=== PATIENT | female | born 1960 | race Caucasian/White ===

== ENCOUNTER 2016-07-30 19:09 | Inpatient (IN) | payer MEDICARE ==
[~2016-07-30] VITALS: Ht 162.6 cm; Wt 67.0 kg
[~2016-07-30 19:09] MED LIST: ASPIRIN81 MG PO; BETAPACE 80 MG80 MG PO; COREG 3.1253.125 MG PO; COUMADIN3 MG PO; FUROSEMIDE20 MG PO; LANOXIN250 MCG PO; LEVAQUIN500 MG PO; PACERONE400 MG PO; PRINIVIL10 MG PO; XARELTO20 MG PO
[2016-07-30 20:42] LABS: BASOPHILS 0.3 % (0.0-2.0); HEMATOCRIT 42.3 % (36.0-48.0); HEMOGLOBIN 14.2 g/dL (12-16); IMMATURE GRANULOCYTES 0.2 % (0-5); LYMPHOCYTES 20.1 % (15-50); MCHC 33.6 g/dL (31.0-37.0); MCV 86.5 fL (80.0-100.0); MEAN PLATELET VOLUME 9.5 fL (7.4-10.4); MONOCYTES 13.8 % (2-11); NEUTROPHILS 60.6 % (40-80); RBC 4.89 10x6/uL (4.00-5.40); RDW 16.2 % (11.5-14.5); WBC 10.8 10x3/uL (4.8-10.8)
[2016-07-30 20:52] LABS: PLATELET COUNT 328 10x3/uL (130-400)
[2016-07-30 20:58] LABS: ALKALINE PHOSPHATASE 132 U/L (46-116); ALT (SGPT) 23 U/L (10-68); BILIRUBIN - TOTAL 0.47 mg/dL (0.2-1.3); CALC OSMOLALITY 260 mosm/kg (275-300); CARBON DIOXIDE 31.4 mmol/L (21.0-32.0); CHLORIDE - SERUM 93 mmol/L (98-107); CREATININE - SERUM 0.8 mg/dL (0.6-1.3); GLUCOSE 99 mg/dL (74-106); POTASSIUM - SERUM 4.1 mmol/L (3.5-5.1); PROTEIN - SERUM 7.8 g/dL (6.4-8.2); SODIUM 130 mmol/L (136-145); UREA NITROGEN 12 mg/dL (7-18); eGFR NON AFRICAN AMERICAN 78 mL/min (90-120)
[2016-07-30 21:14] LABS: PRO BNP 926 pg/mL (0-125)
[2016-07-30 21:15] LABS: TROPONIN-I 0.134 ng/mL (0.000-0.060)
--- NOTE | 2016-07-31 00:25 | NUR ---
PT ARRIVES TO FLOOR FROM THE ER ACCOMPANIED BY ER NURSE VIA WC TO ROOM 2115. PT PLACED ON TELEMETRY, PACED ON TELE 74. O2 2LPM NC PLACED ON PT ON ARRIVAL. PT STATES WEARING O2 AT NIGHT AT HOME. MEDICATIONS RECONCILED AT THE BEDSIDE. ADMISSION ASSESSMENT AND HISTORY COMPLETED. UNIT ROUTINES AND PROTOCOLS DISCUSSED WITH PT, PT VERBALIZED UNDERSTANDING. WILL CONT TO MONITOR.
[2016-07-31] MEDS ORDERED: PACERONE400 MG PO (00:36)
[2016-07-31] MEDS ORDERED: PROAIR HFA8.5 GM INH (00:37)
[2016-07-31 00:38] VITALS: BP 109/74; BMI 23.5
[2016-07-31 06:29] VITALS: BP 93/57
--- NOTE | 2016-07-31 07:30 | NUR ---
RECEIVED PT IN BED AAOX4 RESP UNLABORED NAD NOTED
[2016-07-31 08:32] VITALS: BP 110/73
[2016-07-31 12:12] VITALS: Ht 162.6 cm; Wt 67.0 kg
[2016-07-31 12:43] VITALS: BP 87/60
[2016-07-31 16:18] VITALS: BP 92/64
--- NOTE | 2016-07-31 19:15 | NUR ---
INITIAL ROUNDS MADE. PT SITTING UP IN BED WATCHING TV. PT DENIES NEEDS OR C/O AT THIS TIME. CALL LIGHT IN REACH. WILL CONT TO MONITOR.
[2016-07-31 20:15] VITALS: BP 118/77
[2016-08-01 00:34] VITALS: BP 109/78
--- NOTE | 2016-08-01 00:55 | NUR ---
SUPERINTENDENT SCHOOLS AT BEDSIDE FOR VS, NEEDS ADDRESSED. CALL LIGHT IN REACH. WILL CONT TO MONITOR.
[2016-08-01 04:26] VITALS: BP 101/71
[2016-08-01 05:17] LABS: BASOPHILS 0.2 % (0.0-2.0); HEMOGLOBIN 12.3 g/dL (12-16); IMMATURE GRANULOCYTES 0.3 % (0-5); LYMPHOCYTES 19.1 % (15-50); MCH 28.4 pg (26.0-34.0); MCHC 32.4 g/dL (31.0-37.0); MCV 87.8 fL (80.0-100.0); MEAN PLATELET VOLUME 9.4 fL (7.4-10.4); MONOCYTES 9.3 % (2-11); NEUTROPHILS 70.1 % (40-80); PLATELET COUNT 343 10x3/uL (130-400); RBC 4.33 10x6/uL (4.00-5.40); RDW 16.6 % (11.5-14.5); WBC 11.1 10x3/uL (4.8-10.8)
[2016-08-01 05:30] LABS: CALCIUM 8.3 mg/dL (8.5-10.1); CARBON DIOXIDE 29.6 mmol/L (21.0-32.0); CHLORIDE - SERUM 98 mmol/L (98-107); CREATININE - SERUM 0.8 mg/dL (0.6-1.3); GLUCOSE 97 mg/dL (74-106); SODIUM 134 mmol/L (136-145); eGFR NON AFRICAN AMERICAN 78 mL/min (90-120)
[2016-08-01 05:38] LABS: CALC OSMOLALITY 269 mosm/kg (275-300); POTASSIUM - SERUM 3.4 mmol/L (3.5-5.1); UREA NITROGEN 18 mg/dL (7-18)
--- NOTE | 2016-08-01 06:43 | NUR ---
RESTING WELL WITH EYES CLOSED, CONT TO MONITOR.
--- NOTE | 2016-08-01 07:30 | NUR ---
RECEIVED PT IN BED AAOX4 RESP UNLABORED SKIN W/D DENIES ANY NEEDS OR DISCOMFORT AT THIS TIME
[2016-08-01 08:33] VITALS: BP 92/62
[2016-08-01 12:26] VITALS: BP 91/65
[2016-08-01 15:46] VITALS: BP 91/50
--- NOTE | 2016-08-01 19:15 | NUR ---
INITIAL ROUNDS MADE. PT SITTING UP IN BED. RT IN ROOM FOR SCHEDULED TREATMENTS. PT DENIES NEEDS OR C/O AT THIS TIME. WILL CONT TO MONITOR.
--- NOTE | 2016-08-01 22:35 | NUR ---
WATCHING TV. NO NEEDS AT THIS TIME. CONT TO MONITOR.
--- NOTE | 2016-08-02 03:25 | NUR ---
SHEET MILL SUPERVISOR AT BEDSIDE FOR VS. NEEDS ADDRESSED. CALL LIGHT IN REACH. WILL CONT TO MONITOR.
[2016-08-02 03:49] VITALS: BP 105/59
[2016-08-02 05:37] LABS: BASOPHILS 0.1 % (0.0-2.0); EOSINOPHILS 0 % (0-7); HEMATOCRIT 40.6 % (36.0-48.0); HEMOGLOBIN 13.2 g/dL (12-16); IMMATURE GRANULOCYTES 0.1 % (0-5); LYMPHOCYTES 9.4 % (15-50); MCH 28.5 pg (26.0-34.0); MCHC 32.5 g/dL (31.0-37.0); MCV 87.7 fL (80.0-100.0); MEAN PLATELET VOLUME 9.6 fL (7.4-10.4); MONOCYTES 4.3 % (2-11); NEUTROPHILS 86.1 % (40-80); RBC 4.63 10x6/uL (4.00-5.40); RDW 16.2 % (11.5-14.5); WBC 13.6 10x3/uL (4.8-10.8)
[2016-08-02 05:39] LABS: PLATELET COUNT 429 10x3/uL (130-400)
[2016-08-02 05:56] LABS: CALC OSMOLALITY 270 mosm/kg (275-300); CALCIUM 9.2 mg/dL (8.5-10.1); CARBON DIOXIDE 27.3 mmol/L (21.0-32.0); CHLORIDE - SERUM 98 mmol/L (98-107); CREATININE - SERUM 0.8 mg/dL (0.6-1.3); GLUCOSE 128 mg/dL (74-106); POTASSIUM - SERUM 4.2 mmol/L (3.5-5.1); SODIUM 133 mmol/L (136-145); UREA NITROGEN 20 mg/dL (7-18); eGFR NON AFRICAN AMERICAN 78 mL/min (90-120)
--- NOTE | 2016-08-02 06:09 | NUR ---
RESTING WELL WITH EYES CLOSED, CONT TO MONITOR.
[2016-08-02 08:17] VITALS: BP 101/65
--- NOTE | 2016-08-02 09:15 | NUR ---
TELEMETRY PACED. HR 69. RESTS IN BED WITH CALL LIGHT IN REACH. WILL CONT. PLAN OF CARE.
--- NOTE | 2016-08-02 10:09 | CN ---
PATIENT NAME:GINI LUX MEDICAL RECORD: [id number] : 58 LOCATION:D. D.2115 ADMIT DATE: 07/30/16 ACCOUNT: [id number] CONSULTING PHYSICIAN: RENALDO LOBO MD REFERRING PHYSICIAN: BRAVO REIS MD DATE OF CONSULTATION: 07/31/2016 Cardiology Consultation ADMITTING DIAGNOSES: 1. Pneumonia. 2. Chronic obstructive pulmonary disease. 3. Elevated troponin. 4. Nonischemic cardiomyopathy. 5. Sick sinus syndrome. 6. Status post pacemaker. 7. Paroxysmal atrial fibrillation. 8. Hypertension. HISTORY OF PRESENT ILLNESS: Mrs. Lux presents with shortness of breath, pneumonia, found to have elevated troponin. She has undergone cardiac catheterization twice last year revealing a nonischemic cardiomyopathy, ejection fraction of 30%, but no coronary artery disease. She is status post pacemaker placement and has a history of atrial fibrillation. She appears to be in a paced ventricular rhythm with underlying sinus rhythm. At this time, she has had no dysrhythmias. She has had no chest pain, no chest discomfort. For her cardiomyopathy, she is on Coreg, lisinopril and sotalol for her rhythm. PHYSICAL EXAMINATION: GENERAL APPEARANCE: Well-nourished, well-developed, appears stated age. Level of distress, comfortable. PSYCHIATRIC: Mental status, alert, normal affect. Orientation, oriented to time, place and person. EYES: Lids and conjunctiva, noninjected. No discharge, no pallor. ENT: Lips, teeth, gums, normal dentition. Oropharynx, no cyanosis, no pallor. NECK: Carotid arteries, bilateral normal upstroke, no bruits, no thrills. JUGULAR VEINS: No jugular venous pressure or distention. CERVICAL LYMPH NODES: Nontender, nonenlarged. THYROID: Not enlarged. Nontender. No nodules. LUNGS: Respiratory effort, unlabored. CHEST: Normal curvature. No thoracic deformity. No chest wall tenderness. Percussion, resonant. Auscultation, clear. No wheezes, no rales, no rhonchi. CARDIOVASCULAR: Precordial exam, nondisplaced. No heaves or pericardial thrills. Rate and rhythm, regular. Heart sounds, normal S1, normal S2. No S3, no gallop, no rub. Systolic murmur, not heard. Diastolic murmur, not heard. EXTREMITIES: No cyanosis, no edema. Peripheral pulses, full and equal in all extremities, except as noted. No bruits appreciated. ABDOMEN: Soft, nondistended. Normal aorta. No bruit. Nontender. No masses. Liver, nontender, no hepatomegaly. Spleen, nontender, no splenomegaly. MUSCULOSKELETAL: No joint tenderness. No joint swelling. No erythema. NEUROLOGICAL: Normal gait, normal strength, normal tone. SKIN: Warm and dry. REVIEW OF SYSTEMS: The patient reports easy bruising but reports no swollen glands. The patient reports no fever, no night sweats, no significant weight CONSULT REPORT [id number] GINI LUX gain, no significant weight loss. No significant exercise tolerance. The patient reports no dry eyes, no irritation, no vision change. Patient reports no difficulty hearing and no ear pain. Patient reports no frequent nose bleeds or nose and sinus problems. Patient reports on arm pain on exertion. No shortness of breath while lying down. No history of heart murmur. Patient reports no cough, no wheezing or coughing up blood. Patient reports no abdominal pain, no vomiting. Normal appetite. No diarrhea and not vomiting blood. No nausea and no constipation. Patient reports no incontinence. No difficulty urinating. No hematuria. No increased frequency. Patient reports no muscle aches. No weakness, no arthralgias, no back pain. No swelling of the extremities. Patient reports no abnormal mole, no jaundice, no rashes. Reports no loss of consciousness. No weakness and no numbness. No seizures, dizziness, or headaches. The patient reports no depression, no sleep disturbance, feeling safe in a relationship and no alcohol abuse. Patient reports on fatigue. Reports no runny nose or sinus pressure. No itching, no hives, and no frequent sneezing. OVERALL IMPRESSION: Nonischemic cardiomyopathy. The troponin elevation is secondary to demand ischemia. No other cardiac workup or treatment is necessary. Continue her current cardiac medications. TRANSINT:[id number] Voice Confirmation ID: [id number] DOCUMENT ID: [id number] RENALDO LOBO MD at 1009 CC: [id number] DICTATION DATE: 07/31/16937 INFECTIOUS DISEASE PHYSICIAN: 07/31/16954 [facility] IN [place] [id number]
[2016-08-02 12:31] VITALS: BP 96/68
--- NOTE | 2016-08-02 13:00 | NUR ---
AMBULATES 500 FEET WITH PT ASSIST.
[2016-08-02 15:55] VITALS: BP 110/71
--- NOTE | 2016-08-02 19:15 | NUR ---
INITIAL ROUNDS MADE. PT SITTING UP IN BED WATCHING TV. DENIES NEEDS OR C/O AT THIS TIME. CALL LIGHT IN REACH. WILL CONT TO MONITOR.
[2016-08-02 20:00] VITALS: BP 96/68
[2016-08-03] VITALS: BP 106/77
--- NOTE | 2016-08-03 00:26 | NUR ---
OUTPATIENT CODING SPECIALIST AT BEDSIDE FOR VS, NEEDS ADDRESSED. CALL LIGHT IN REACH. WILL CONT TO MONITOR.
[2016-08-03 04:00] VITALS: BP 100/67
[2016-08-03 05:57] LABS: BASOPHILS 0.1 % (0.0-2.0); EOSINOPHILS 0 % (0-7); HEMOGLOBIN 13.4 g/dL (12-16); IMMATURE GRANULOCYTES 0.4 % (0-5); LYMPHOCYTES 9.5 % (15-50); MCHC 32.7 g/dL (31.0-37.0); MEAN PLATELET VOLUME 9.3 fL (7.4-10.4); MONOCYTES 4.4 % (2-11); NEUTROPHILS 85.6 % (40-80); PLATELET COUNT 493 10x3/uL (130-400); RBC 4.66 10x6/uL (4.00-5.40); RDW 16.2 % (11.5-14.5); WBC 14.4 10x3/uL (4.8-10.8)
[2016-08-03 06:13] LABS: CALC OSMOLALITY 264 mosm/kg (275-300); CALCIUM 8.9 mg/dL (8.5-10.1); CARBON DIOXIDE 30.1 mmol/L (21.0-32.0); CHLORIDE - SERUM 95 mmol/L (98-107); CREATININE - SERUM 0.8 mg/dL (0.6-1.3); GLUCOSE 130 mg/dL (74-106); SODIUM 130 mmol/L (136-145); UREA NITROGEN 18 mg/dL (7-18); eGFR NON AFRICAN AMERICAN 78 mL/min (90-120)
[2016-08-03 06:36] LABS: MCH 28.9 pg (26.0-34.0)
[2016-08-03 08:08] VITALS: BP 99/66
--- NOTE | 2016-08-03 09:43 | NUR ---
TELEMETRY PACED. RESP UL ON 02 3L NC. CALL LIGHT IN REACH. WILL CONT. PLAN OF CARE.
[2016-08-03 12:03] VITALS: BP 96/66
[2016-08-03 16:40] VITALS: BP 90/55
--- NOTE | 2016-08-03 19:15 | NUR ---
INITIAL ROUNDS MADE. PT SITTING UP IN BED WATCHING TV. DENIES NEEDS OR C/O AT THIS TIME. CALL LIGHT IN REACH. WILL CONT TO MONITOR.
[2016-08-03 20:00] VITALS: BP 99/70
[2016-08-04] VITALS: BP 110/75
[2016-08-04 02:00] VITALS: BP 107/72
--- NOTE | 2016-08-04 03:54 | NUR ---
POST PRODUCTION ASSISTANT AT BEDSIDE FOR VS. NEEDS ADDRESSED, CALL LIGHT IN REACH. CONT TO MONITOR.
[2016-08-04 04:00] VITALS: BP 124/87
[2016-08-04 05:39] LABS: BASOPHILS 0.1 % (0.0-2.0); CALC OSMOLALITY 270 mosm/kg (275-300); CALCIUM 8.6 mg/dL (8.5-10.1); CARBON DIOXIDE 30.4 mmol/L (21.0-32.0); CHLORIDE - SERUM 98 mmol/L (98-107); CREATININE - SERUM 0.8 mg/dL (0.6-1.3); EOSINOPHILS 0 % (0-7); GLUCOSE 146 mg/dL (74-106); HEMATOCRIT 39.1 % (36.0-48.0); HEMOGLOBIN 12.5 g/dL (12-16); IMMATURE GRANULOCYTES 0.4 % (0-5); LYMPHOCYTES 8.8 % (15-50); MCV 87.7 fL (80.0-100.0); MEAN PLATELET VOLUME 9.1 fL (7.4-10.4); MONOCYTES 5.7 % (2-11); PLATELET COUNT 495 10x3/uL (130-400); POTASSIUM - SERUM 3.9 mmol/L (3.5-5.1); RBC 4.46 10x6/uL (4.00-5.40); RDW 16.2 % (11.5-14.5); SODIUM 132 mmol/L (136-145); UREA NITROGEN 22 mg/dL (7-18); WBC 14.1 10x3/uL (4.8-10.8); eGFR NON AFRICAN AMERICAN 78 mL/min (90-120)
[2016-08-04 08:05] VITALS: BP 123/79
[2016-08-04 12:07] VITALS: BP 103/71
--- NOTE | 2016-08-04 14:21 | NUR ---
Nutrition follow-up: Diet: low sodium PO intake ~70% average of last 9 meals Labs reviewed Wt: 142# No BM charted since admit; spoke with nursing PO intake is good at this time. RDN following.
[2016-08-04 17:04] VITALS: BP 90/56
--- NOTE | 2016-08-04 21:02 | NUR ---
RESTING IN BED WITH NO DISTRESS. SALINE LOCK TO RIGHT HAND. PACED ON TELEMETRY. SEE SHIFT ASSESSMENT. CPOC.
--- NOTE | 2016-08-04 22:24 | NUR ---
PT RESTING IN BED. BEDTIME MEDS GIVEN. REVIEWED EACH MED AND IT'S PURPOSE. IV ABT UP AND INFUSING.
[2016-08-05] VITALS: BP 171/65
[2016-08-05 04:00] VITALS: BP 100/67
--- NOTE | 2016-08-05 06:25 | NUR ---
AM PORTABLE CHEST XRAY DONE. AM LAB COLLECTED PER CONVERTER OPERATOR.
[2016-08-05 06:35] LABS: BASOPHILS 0 % (0.0-2.0); EOSINOPHILS 0 % (0-7); HEMATOCRIT 39.5 % (36.0-48.0); HEMOGLOBIN 12.8 g/dL (12-16); IMMATURE GRANULOCYTES 0.3 % (0-5); LYMPHOCYTES 8.1 % (15-50); MCH 28.3 pg (26.0-34.0); MCHC 32.4 g/dL (31.0-37.0); MCV 87.4 fL (80.0-100.0); MEAN PLATELET VOLUME 8.8 fL (7.4-10.4); MONOCYTES 6.3 % (2-11); NEUTROPHILS 85.3 % (40-80); PLATELET COUNT 492 10x3/uL (130-400); RBC 4.52 10x6/uL (4.00-5.40); RDW 16.4 % (11.5-14.5); WBC 12.5 10x3/uL (4.8-10.8)
[2016-08-05 06:52] LABS: CALC OSMOLALITY 275 mosm/kg (275-300); CALCIUM 8.8 mg/dL (8.5-10.1); CARBON DIOXIDE 31.7 mmol/L (21.0-32.0); CHLORIDE - SERUM 99 mmol/L (98-107); CREATININE - SERUM 0.8 mg/dL (0.6-1.3); GLUCOSE 160 mg/dL (74-106); POTASSIUM - SERUM 4.3 mmol/L (3.5-5.1); SODIUM 135 mmol/L (136-145); UREA NITROGEN 22 mg/dL (7-18); eGFR NON AFRICAN AMERICAN 78 mL/min (90-120)
[2016-08-05 07:48] VITALS: BP 100/71
[2016-08-05 12:05] VITALS: BP 89/59
--- NOTE | 2016-08-05 15:48 | NUR ---
Is the patient Alert and Oriented? Yes 0 * How many steps to enter\exit or inside your home? 4 0 * PCP DR. VENEGAS 0 * [facility] [address] [employer] [facility] * Preadmission Environment Home with Family 0 * ADLs Independent 0 * Equipment Oxygen 0 * Other Equipment O2 PROVIDED BY [facility] 0 * List name and contact numbers for known caregivers / representatives who currently or will assist patient after discharge: S/O: JEFF WONG [phone] * Community resources currently utilized None 0 * Additional services required to return to the preadmission environment? No 0 * Can the patient safely return to the preadmission environment? Yes 0 * Has this patient been hospitalized within the prior 30 days at any hospital? No 0 Grand Total: 0 PATIENT IS AWAKE AND ALERT. SHE STATES SHE LIVES AT HOME WITH HER S/O JEFF WONG. HE WILL BE AVAILABLE TO DRIVE HER HOME AT DISCHARGE. PATIENT STATES HER PCP IS DR. VENEGAS. SHE GETS HER MEDS FROM [facility] [address]. SHE HAS O2 PROVIDED BY [facility]. PATIENT DENEIS EVER HAVING HOME HEALTH CARE. SHE STATES THERE ARE ONLY 4 STEPS TO ENTER HER HOME. NO DISCHARGE NEEDS IDENTIFIED.
[2016-08-05 15:53] VITALS: BP 110/50
[2016-08-05 20:00] VITALS: BP 98/66
--- NOTE | 2016-08-05 20:00 | NUR ---
PT RESTING IN BED. ALERT/ORIENTED AND RESTING IN BED. O2 @ 3L/NC. SALINE LOCK TO RIGHT HAND. INDEPENDENT TO BATHROOM. TELLS NURSE SHE FEELS BETTER. KACY BE NPO AFTER MIDNIGHT FOR BRONCHOSCOPY IN AM PER DR HERNANDEZ.
--- NOTE | 2016-08-05 22:00 | NUR ---
HS MEDS GIVEN. NO DISTRESS. RESTING. IV ABT INFUSING.
[2016-08-06] VITALS (10 sets, daily range): BP systolic 91–103; BP diastolic 60–68
--- NOTE | 2016-08-06 07:30 | NUR ---
PT RESTING QUIETLY RESP UNLABORED DENIES ANY NEEDS OR DISCOMFORT NAD NOTED
--- NOTE | 2016-08-06 13:49 | NUR ---
PT REFUSE SCDs
[2016-08-07 04:00] VITALS: BP 103/73
[2016-08-07 05:25] LABS: BASOPHILS 0.1 % (0.0-2.0); EOSINOPHILS 0 % (0-7); HEMATOCRIT 39.1 % (36.0-48.0); HEMOGLOBIN 12.9 g/dL (12-16); IMMATURE GRANULOCYTES 0.4 % (0-5); LYMPHOCYTES 6.9 % (15-50); MCH 28.5 pg (26.0-34.0); MCV 86.5 fL (80.0-100.0); MONOCYTES 6.1 % (2-11); NEUTROPHILS 86.5 % (40-80); PLATELET COUNT 477 10x3/uL (130-400); RBC 4.52 10x6/uL (4.00-5.40); WBC 11.9 10x3/uL (4.8-10.8)
[2016-08-07 05:48] LABS: ALBUMIN 2.2 g/dL (3.4-5.0); ALKALINE PHOSPHATASE 105 U/L (46-116); ALT (SGPT) 67 U/L (10-68); CALC OSMOLALITY 275 mosm/kg (275-300); CALCIUM 8.3 mg/dL (8.5-10.1); CARBON DIOXIDE 31.4 mmol/L (21.0-32.0); CHLORIDE - SERUM 100 mmol/L (98-107); CREATININE - SERUM 0.7 mg/dL (0.6-1.3); GLUCOSE 145 mg/dL (74-106); PROTEIN - SERUM 5.7 g/dL (6.4-8.2); SODIUM 135 mmol/L (136-145); UREA NITROGEN 21 mg/dL (7-18); eGFR NON AFRICAN AMERICAN > 90 mL/min (90-120)
--- NOTE | 2016-08-07 07:49 | NUR ---
RECEIVED REPORT FROM NIGHT RN. PATIENT RECEIVING RESP TREATMENT. MONITOR SHOWS PACED RHYTHM WITH RATE @ 71. WILL CONTINUE TO MONITOR.
[2016-08-07 09:19] VITALS: BP 105/73
[2016-08-07 12:21] VITALS: BP 100/70
--- NOTE | 2016-08-07 14:30 | NUR ---
BLOOD STARTED ORDERED. WILL MONITOR PER PROCOTROL
[2016-08-07 15:49] VITALS: BP 90/57
[2016-08-07 18:07] LABS: ACID FAST SMEAR Negative (()); AFB SPECIMEN PROCESSING Concentration (())
[2016-08-07 21:37] VITALS: BP 96/68
[2016-08-08 00:30] VITALS: BP 105/71
[2016-08-08 04:30] VITALS: BP 104/68
[2016-08-08 06:04] LABS: BASOPHILS 0.1 % (0.0-2.0); EOSINOPHILS 0 % (0-7); HEMATOCRIT 39.2 % (36.0-48.0); HEMOGLOBIN 13.1 g/dL (12-16); IMMATURE GRANULOCYTES 0.5 % (0-5); LYMPHOCYTES 6.3 % (15-50); MCH 28.7 pg (26.0-34.0); MCHC 33.4 g/dL (31.0-37.0); MCV 85.8 fL (80.0-100.0); MONOCYTES 5.6 % (2-11); NEUTROPHILS 87.5 % (40-80); PLATELET COUNT 452 10x3/uL (130-400); RBC 4.57 10x6/uL (4.00-5.40); RDW 16.2 % (11.5-14.5); WBC 12.8 10x3/uL (4.8-10.8)
[2016-08-08 06:43] LABS: ALKALINE PHOSPHATASE 124 U/L (46-116); ALT (SGPT) 65 U/L (10-68); CALC OSMOLALITY 267 mosm/kg (275-300); CARBON DIOXIDE 31.1 mmol/L (21.0-32.0); CHLORIDE - SERUM 97 mmol/L (98-107); CREATININE - SERUM 0.7 mg/dL (0.6-1.3); GLUCOSE 150 mg/dL (74-106); POTASSIUM - SERUM 3.9 mmol/L (3.5-5.1); PROTEIN - SERUM 5.3 g/dL (6.4-8.2); SODIUM 131 mmol/L (136-145); UREA NITROGEN 18 mg/dL (7-18); eGFR NON AFRICAN AMERICAN > 90 mL/min (90-120)
--- NOTE | 2016-08-08 07:23 | NUR ---
PT SITTING UP IN BED SLEEPING NO S/S DISTRESS WILL CONT TO MONITOR.
[2016-08-08 08:12] LABS: MAGNESIUM - SERUM 1.9 mg/dL (1.8-2.4); PHOSPHOROUS 3.5 mg/dL (2.5-4.9)
[2016-08-08 08:59] VITALS: BP 95/59
[2016-08-08 12:14] VITALS: BP 96/65
[2016-08-08 16:13] VITALS: BP 89/58
--- NOTE | 2016-08-08 18:12 | NUR ---
PT SITTING UP IN BED WATCHING TV DENIES NEEDS
--- NOTE | 2016-08-08 19:15 | NUR ---
INITIAL ROUNDS MADE. PT SITTING UP IN BED WATCHING TV. DENIES NEEDS OR C/O AT THIS TIME. CALL LIGHT IN REACH. WILL CONT TO MONITOR.
[2016-08-08 21:37] VITALS: BP 100/64
--- NOTE | 2016-08-09 00:21 | NUR ---
PARTS SALESPERSON AT BEDSIDE FOR VS. NEEDS ADDRESSED AT THIS TIME. CALL LIGHT IN REACH. WILL CONT TO MONITOR.
[2016-08-09 00:30] VITALS: BP 104/62
[2016-08-09 04:45] VITALS: BP 103/72
--- NOTE | 2016-08-09 05:05 | NUR ---
RESTING WELL WITH EYES CLOSED, NO DISTRESS NOTED. WILL CONT TO MONITOR.
[2016-08-09 06:20] LABS: BASOPHILS 0.1 % (0.0-2.0); EOSINOPHILS 0.1 % (0-7); HEMATOCRIT 39.7 % (36.0-48.0); HEMOGLOBIN 13.2 g/dL (12-16); IMMATURE GRANULOCYTES 0.6 % (0-5); MCH 28.4 pg (26.0-34.0); MCHC 33.2 g/dL (31.0-37.0); MCV 85.6 fL (80.0-100.0); NEUTROPHILS 87.2 % (40-80); PLATELET COUNT 491 10x3/uL (130-400); RBC 4.64 10x6/uL (4.00-5.40); RDW 16.3 % (11.5-14.5)
[2016-08-09 06:25] LABS: WBC 18.2 10x3/uL (4.8-10.8)
[2016-08-09 06:38] LABS: ALBUMIN 2.1 g/dL (3.4-5.0); ALKALINE PHOSPHATASE 135 U/L (46-116); ALT (SGPT) 58 U/L (10-68); CALC OSMOLALITY 275 mosm/kg (275-300); CALCIUM 7.9 mg/dL (8.5-10.1); CARBON DIOXIDE 33.1 mmol/L (21.0-32.0); CHLORIDE - SERUM 101 mmol/L (98-107); CREATININE - SERUM 0.7 mg/dL (0.6-1.3); GLUCOSE 159 mg/dL (74-106); PHOSPHOROUS 3.3 mg/dL (2.5-4.9); POTASSIUM - SERUM 3.9 mmol/L (3.5-5.1); PROTEIN - SERUM 5.4 g/dL (6.4-8.2); SODIUM 135 mmol/L (136-145); UREA NITROGEN 20 mg/dL (7-18); eGFR NON AFRICAN AMERICAN > 90 mL/min (90-120)
--- NOTE | 2016-08-09 07:30 | NUR ---
RECEIVED PT IN BED AAOX 4 RESP UNLABORED O2 ON 3 LPM NC PT DENIES ANY NEEDS OR DISCOMFORT AT THIS TIME
[2016-08-09 08:00] VITALS: BP 108/74
[2016-08-09 12:08] VITALS: BP 103/72
[2016-08-09 13:13] LABS: FUNGUS STAIN Final report (())
[2016-08-09 16:00] VITALS: BP 103/74
--- NOTE | 2016-08-09 19:15 | NUR ---
INITIAL ROUNDS MADE. PT SITTING UP IN BED WATCHING TV. NO NEEDS OR C/O VOICED AT THIS TIME. CALL LIGHT IN REACH. WILL CONT TO MONITOR.
[2016-08-09 21:40] VITALS: BP 110/71
[2016-08-10 02:00] VITALS: BP 102/75
--- NOTE | 2016-08-10 03:48 | NUR ---
RESTING WELL WITH EYES CLOSED. CALL LIGHT IN REACH. WILL CONT TO MONITOR.
[2016-08-10 04:24] LABS: BASOPHILS 0.1 % (0.0-2.0); EOSINOPHILS 0 % (0-7); HEMATOCRIT 38.5 % (36.0-48.0); HEMOGLOBIN 12.6 g/dL (12-16); IMMATURE GRANULOCYTES 0.8 % (0-5); LYMPHOCYTES 5.1 % (15-50); MCH 28.4 pg (26.0-34.0); MCHC 32.7 g/dL (31.0-37.0); MCV 86.7 fL (80.0-100.0); MEAN PLATELET VOLUME 8.9 fL (7.4-10.4); MONOCYTES 4.5 % (2-11); NEUTROPHILS 89.5 % (40-80); PLATELET COUNT 448 10x3/uL (130-400); RBC 4.44 10x6/uL (4.00-5.40); RDW 16.4 % (11.5-14.5); WBC 14.8 10x3/uL (4.8-10.8)
[2016-08-10 04:55] LABS: ALBUMIN 2.1 g/dL (3.4-5.0); ALKALINE PHOSPHATASE 135 U/L (46-116); ALT (SGPT) 55 U/L (10-68); BILIRUBIN - TOTAL 0.34 mg/dL (0.2-1.3); CALC OSMOLALITY 279 mosm/kg (275-300); CARBON DIOXIDE 33.9 mmol/L (21.0-32.0); CHLORIDE - SERUM 100 mmol/L (98-107); CREATININE - SERUM 0.7 mg/dL (0.6-1.3); GLUCOSE 169 mg/dL (74-106); POTASSIUM - SERUM 3.9 mmol/L (3.5-5.1); PROTEIN - SERUM 5.1 g/dL (6.4-8.2); SODIUM 136 mmol/L (136-145); UREA NITROGEN 23 mg/dL (7-18); eGFR NON AFRICAN AMERICAN > 90 mL/min (90-120)
--- NOTE | 2016-08-10 07:30 | NUR ---
RESTING QUIETLY NAD NOTED
[2016-08-10 07:52] VITALS: BP 106/76
[2016-08-10 11:42] VITALS: BP 98/71
[2016-08-10 15:51] VITALS: BP 93/64
--- NOTE | 2016-08-10 19:15 | NUR ---
INITIAL ROUNDS MADE. PT SITTING UP IN BED WATCHING TV WITH FAMILY AT BEDSIDE. DISCUSSED PLAN OF CARE AND ANSWERED QUESTIONS. PT DENIES NEEDS OR C/O AT THIS TIME. CALL LIGHT IN REACH. WILL CONT TO MONITOR.
--- NOTE | 2016-08-10 23:55 | NUR ---
PATIENT APPOINTMENT COORDINATOR AT BEDSIDE FOR VS. NEEDS ADDRESSED AT THIS TIME. CALL LIGHT IN REACH. WILL CONT TO MONITOR.
[2016-08-11] VITALS (10 sets, daily range): BP systolic 76–121; BP diastolic 48–73
[2016-08-11 04:30] LABS: BASOPHILS 0.1 % (0.0-2.0); EOSINOPHILS 0 % (0-7); HEMATOCRIT 37.5 % (36.0-48.0); HEMOGLOBIN 12.4 g/dL (12-16); IMMATURE GRANULOCYTES 0.6 % (0-5); LYMPHOCYTES 5.2 % (15-50); MCH 28.6 pg (26.0-34.0); MCHC 33.1 g/dL (31.0-37.0); MCV 86.4 fL (80.0-100.0); MONOCYTES 4.6 % (2-11); NEUTROPHILS 89.5 % (40-80); PLATELET COUNT 437 10x3/uL (130-400); RBC 4.34 10x6/uL (4.00-5.40); RDW 16.2 % (11.5-14.5); WBC 18.5 10x3/uL (4.8-10.8)
[2016-08-11 04:55] LABS: ALBUMIN 2.1 g/dL (3.4-5.0); ALKALINE PHOSPHATASE 126 U/L (46-116); ALT (SGPT) 51 U/L (10-68); BILIRUBIN - TOTAL 0.34 mg/dL (0.2-1.3); CALC OSMOLALITY 278 mosm/kg (275-300); CARBON DIOXIDE 33.5 mmol/L (21.0-32.0); CHLORIDE - SERUM 101 mmol/L (98-107); CREATININE - SERUM 0.7 mg/dL (0.6-1.3); GLUCOSE 143 mg/dL (74-106); POTASSIUM - SERUM 4.1 mmol/L (3.5-5.1); PROTEIN - SERUM 5.1 g/dL (6.4-8.2); SODIUM 137 mmol/L (136-145); UREA NITROGEN 20 mg/dL (7-18); eGFR NON AFRICAN AMERICAN > 90 mL/min (90-120)
--- NOTE | 2016-08-11 09:50 | NUR ---
PT IS ALERT. ASSESSMENT DONE PER FLOWSHEET. NO OTHER NEEDS AT THIS TIME. WILL CONTINUE TO MONITOR.
--- NOTE | 2016-08-11 11:30 | NUR ---
RECEIVED PT BACK FROM BRONCHOSCOPY. BP 76/55 , CALLED SPECIALS AT THIS TIME AND SPOKE TO KEISHA. RN OPENED FLUIDS IN ROOM WIDE IN AN EFFORT TO GIVE PT A BOLUS AND KEISHA CAME AND SAT WITH PT UNTIL BP WAS MORE STABLE. WILL CONTINUE TO MONITOR.
--- NOTE | 2016-08-11 13:48 | NUR ---
Nutrition follow-up: Diet: NPO PO intake of low sodium diet has been ~75% of meals Labs reviewed Wt: 148# RDN will monitor patients diet advancement and tolerance.
--- NOTE | 2016-08-11 14:30 | NUR ---
PT IS ALERT. NO SS OF DISTRESS AT THIS TIME. WILL CONTINUE TO MONTIOR.
--- NOTE | 2016-08-11 19:20 | NUR ---
PT IS ALERT. ASSESSMENT DONE PER FLOWSHEET. NO OTHER NEEDS AT THIS TIME. WILL CONTINUE TO MONITOR.
[2016-08-12] VITALS: BP 120/73
--- NOTE | 2016-08-12 00:27 | NUR ---
PT SLEEPING. APPEARS COMFORTABLE. NO DISTRESS NOTED. CALL LIGHT WITH IN REACH. WILL CONT. TO MONITOR.
[2016-08-12 04:00] VITALS: BP 118/67
--- NOTE | 2016-08-12 06:30 | NUR ---
PT SITTING UP IN BED WATCHING TV. A/O. STATES HER BREATHING IS MUCH BETTER. PT DENIES NEEDS. CALL LIGHT WITH IN REACH. WILL CONT. TO MONITOR.
[2016-08-12 07:14] LABS: BASOPHILS 0.1 % (0.0-2.0); EOSINOPHILS 0 % (0-7); HEMATOCRIT 38.5 % (36.0-48.0); HEMOGLOBIN 12.6 g/dL (12-16); IMMATURE GRANULOCYTES 0.6 % (0-5); LYMPHOCYTES 4.5 % (15-50); MCH 28.3 pg (26.0-34.0); MCHC 32.7 g/dL (31.0-37.0); MCV 86.5 fL (80.0-100.0); MEAN PLATELET VOLUME 8.9 fL (7.4-10.4); MONOCYTES 9.9 % (2-11); NEUTROPHILS 84.9 % (40-80); PLATELET COUNT 369 10x3/uL (130-400); RBC 4.45 10x6/uL (4.00-5.40); RDW 16.5 % (11.5-14.5); WBC 15.7 10x3/uL (4.8-10.8)
[2016-08-12 07:35] LABS: CALC OSMOLALITY 277 mosm/kg (275-300); CARBON DIOXIDE 33.7 mmol/L (21.0-32.0); CHLORIDE - SERUM 98 mmol/L (98-107); CREATININE - SERUM 0.7 mg/dL (0.6-1.3); GLUCOSE 165 mg/dL (74-106); MAGNESIUM - SERUM 1.9 mg/dL (1.8-2.4); PHOSPHOROUS 3.9 mg/dL (2.5-4.9); POTASSIUM - SERUM 4.2 mmol/L (3.5-5.1); SODIUM 135 mmol/L (136-145); UREA NITROGEN 23 mg/dL (7-18); eGFR NON AFRICAN AMERICAN > 90 mL/min (90-120)
[2016-08-12 08:17] VITALS: BP 110/80
--- NOTE | 2016-08-12 08:56 | NUR ---
PT IS ALERT. ASSESSMENT DONE PER FLOWSHEET. NO OTHER NEEDS AT THIS TIME. WILL CONTINUE TO MONTIOR.
[2016-08-12 11:50] VITALS: BP 94/68
--- NOTE | 2016-08-12 12:22 | NUR ---
PT IS ALERT. NO SS OF DISTRESS WILL CONTINUE TO MONITOR.
[2016-08-12] MEDS ORDERED: BENZONATATE200 MG PO (14:29)
[2016-08-12] MEDS ORDERED: SINGULAIR10 MG PO (14:29)
[2016-08-12] MEDS ORDERED: MUCINEX DM ER1 EAC1 PO (14:29)
[2016-08-12] MEDS ORDERED: PREDNISONE10 MG PO (14:30)
[2016-08-12 15:23] LABS: ACID FAST SMEAR Negative (()); AFB SPECIMEN PROCESSING Concentration (())
[2016-08-12] MEDS ORDERED: IPRAT-ALBUT 0.5-3 ML INH (15:46)
[2016-08-12] MEDS ORDERED: ADVAIR 250/501 DISK INH (15:48)
[2016-08-12 16:11] VITALS: BP 104/72
--- NOTE | 2016-08-12 17:11 | NUR ---
Patient Name: GINI ODEN Encounter No: [id number] : 1960 Primary Insurance: [employer] Anticipated DC Date: 08-12-2016 Planned Disposition: Home LATE ENTRY: DCP follow-up note: CM RECEIVED REQUEST TO MEET WITH PT AT HER REQUEST. CM MET WITH PT IN ROOM TO DISCUSS DISCHARGE NEEDS AND PLANNING. PT REPORTS SHE WOULD LIKE TO FILE FOR DISABILITY AND ASKED CM TO ASSIST. CM EXPLAINED THAT CM WAS NOT ABLE TO ASSIST, EXPLAINED INTERNET APPLICATION TO SOCIAL SECURITY DISABILITY OR NEED TO FILL OUT PAPER APPLICATION AT THE SOCIAL SECURITY OFFICE. PT WILL FOLLOW UP WITH THE SOCIAL SECURITY OFFICE FOR DISABILITY CLAIM AND WILL FOLLOW UP WITH HER PRIMARY DOCTOR FOR ASSISTANCE IN FILING FOR SHORT TERM DISABILITY THROUGH HER EMPLOYER. CM DISCUSSED AVAILABILITY OF HOME HEALTH, REHAB SERVICES AND MEDICAL EQUIPMENT. PT DENIES DISCHARGE NEEDS. SIGNIFICANT OTHER TO TRANSPORT HOME AT DISCHARGE. Roe Boo, CASE MANAGEMENT
--- NOTE | 2016-08-13 10:40 | NUR ---
Patient Name: GINI ODEN Encounter No: [id number] : 1960 Primary Insurance: [employer] Anticipated DC Date: 08-12-2016 Planned Disposition: Home DCP follow-up note: [facility] RECEIVED CALL FROM MORIS OF [facility], , WHO REPORTS RECEIVING THE PRESCRIPTION FOR NEBULIZER BUT NO CLINICAL NOTES FROM HOSPITAL STAY TO COMPLETE INSURANCE AUTHORIZATION. CM FAXED CLINICAL NOTES AND FACE SHEET TO JUAN C AT [phone]. [facility]. Roe Boo, CASE MANAGEMENT
[2016-08-13 13:18] LABS: FUNGUS STAIN Final report (())
--- NOTE | 2016-08-13 13:49 | CN ---
PATIENT NAME:GINI LUX MEDICAL RECORD: [id number] : 58 LOCATION:D. D.2115 ADMIT DATE: 07/30/16 ACCOUNT: [id number] CONSULTING PHYSICIAN: TIMUR ANDREA MD REFERRING PHYSICIAN: JOSE CORLEY MD DATE OF CONSULTATION: 08/01/2016 CONSULT REQUESTING PHYSICIAN: Dr. Jose Corley. REASON FOR CONSULTATION: Acute exacerbation of pneumonia, chronic obstructive pulmonary disease. HISTORY OF PRESENT ILLNESS: Ms. Lux is a 56-year-old female with a history of COPD and cardiomyopathy. 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 According to the patient, she is sick since last Tuesday. She is coughing. She has wheezing and shortness of breath. She has a fever and chill. Her home nebulizer was not working and the patient came into the ER. On evaluation in the ER, she has elevated cardiac enzyme and also chest radiograph and CT scan confirmed a multilobar pneumonia. REVIEW OF SYSTEMS: CONSTITUTIONAL: She has some low-grade fever. HEENT: Sinus congestion. RESPIRATORY: As in history of present illness. CARDIOVASCULAR: She had no chest pain, but she had elevated cardiac enzyme. GASTROINTESTINAL: Negative. GENITOURINARY: Negative. Other review of the systems is negative. PAST MEDICAL HISTORY: 1. COPD. 2. Congestive heart failure with cardiomyopathy. 3. Chronic hypoxic respiratory failure. 4. History of atrial fibrillation. 5. Coronary artery disease. PAST SURGICAL HISTORY: 1. Status post pacemaker defibrillator placement. 2. Cholecystectomy. 3. T&A and hysterectomy. ALLERGIES: SHE IS ALLERGIC TO PENICILLIN. PRESENT MEDICATIONS: On Simply Zesty and reviewed. PERSONAL AND SOCIAL HISTORY: The patient never smoked, but she has a heavy exposure to secondhand smoking from parents, family member and working place. FAMILY HISTORY: Significant for cardiovascular disease. PHYSICAL EXAMINATION: GENERAL: Now, the patient is lying comfortable. She is not in acute distress. VITAL SIGNS: The blood pressure is 91/65, pulse is 70, respiration is 23, temperature 98.6, and SpO2 of 99% on 2 liters nasal cannula. HEENT: Conjunctivae are pink. Sclerae are nonicteric. CONSULT REPORT [id number] AMADOU LUXANNIE Jose NECK: Supple. No JVD. CHEST: The chest excursion is minimal with prolonged expiration with wheezing. There are crackles at the left base. HEART: Rhythm regular. Normal sound. No murmur. ABDOMEN: The abdomen is soft. Bowel sounds are present. No hepatosplenomegaly. RECTAL: Deferred. EXTREMITIES: No cyanosis. No clubbing. There is 1+ pedal edema. SKIN: The skin is warm. Normal turgor. CENTRAL NERVOUS SYSTEM: The patient is awake and alert. There is no obvious cranial nerve abnormality. The gait was not tested. CHEST RADIOGRAPH: There is a borderline cardiomyopathy and a right upper lobe and left upper lobe infiltrates. LABORATORY DATA: On the CBC, the WBC is 11.1, hemoglobin 12.3, hematocrit 38, and platelet count 343. Chemistry: Sodium 134, potassium 3.4, BUN is 18, creatinine 0.8, and glucose is 97. IMPRESSION: 1. Acute exacerbation of chronic obstructive pulmonary disease. 2. Ungvt-yo-tytkpxk hypoxic respiratory failure. 3. Multilobar pneumonia. 4. Community-acquired pneumonia. 5. Acute cough. 6. Wheezing. 7. Dyspnea. 8. Elevated cardiac enzymes, possible stress leak, possible acute coronary syndrome. 9. Cardiomyopathy with an EF of 20%, status post defibrillator placement. RECOMMENDATION: 1. Albuterol and ipratropium nebulizer q.6 hourly, albuterol nebulizer every 2 hours p.r.n. 2. Start on Brovana, budesonide nebulizer. 3. Increase methylprednisolone to 60 mg IV q.8. 4. Singulair 10 mg daily. 5. Mucinex DM 2 tablets per oral b.i.d. 6. Supplemental oxygen. 7. We will follow up labs and chest radiograph in the morning. Discontinue Zithromax, start her on Levaquin IV. Continue Rocephin to cover for Gram-negative rods and atypicals. Dr. Corley, once again, thanks for involving me in the care of Ms. Lux. TRANSINT:[id number] Voice Confirmation ID: [id number] DOCUMENT ID: [id number] TIMUR ANDREA MD at 1349 CC: JOSE CORLEY MD and GABRIEL VENEGAS MD [id number] DICTATION DATE: 08/01/16 1521 POWDER WORKER TNT: 08/01/166 DIS IN 08/12/16 [facility] [address] [place] [address]
--- NOTE | 2016-08-13 13:49 | OP ---
PATIENT NAME: GINI ODEN MEDICAL RECORD: [id number] :58 LOCATION:D.M2 D.2115 ADMISSION DATE:07/30/16 SURGEON: TIMUR ANDREA MD DATE OF OPERATION: 08/11/2016 PROCEDURE: Fiberoptic bronchoscopy. INDICATION: The patient has mucous plugging and worsening asthma and chest radiograph infiltrate in the left lower lobe. Fiberoptic bronchoscopy was carried out to remove any mucous plugging. PROCEDURE: After signing the consent form and getting conscious sedation, fiberoptic bronchoscope was passed through the mouth. The epiglottises were normal. The vocal cords were normal. The vallecula was normal. The main tracheae were normal. There were white yellowish secretion in the main trachea. The mala was sharp. The right main bronchus was normal. The subsegment of the right upper lobe, right lower lobe, there was whitish secretion, but there was no mucus plugging as such. With expiration, the right main bronchus almost close, more consistent with bronchomalacia. The left main bronchus was normal. The subsegment to the left upper lobe, left lower lobe, there were whitish secretions. There were no mucus plug as such. They are also closing with expiration consistent with bronchomalacia. Specimen washing was obtained, sent for routine culture and sensitivity, AFB and fungus. MONITORING: EKG, pulse, and blood pressure were monitored throughout the procedure. MEDICATIONS: Atropine 0.6 mg IM, fentanyl 100 mcg and Versed 4 mg IV in divided doses given. TRANSINT:[id number] Voice Confirmation ID: [id number] DOCUMENT ID: [id number] TIMUR ANDREA MD at 1349 CC: [id number] DICTATION DATE: 08/11/16 1122 CASE COORDINATOR: 08/11/16 2200 DIS IN 08/12/16 [place] [id number] [place] [address]
[2016-08-15 08:14] LABS: FUNGUS CULTURE RESULT 1 Candida glabrata (())
[2016-09-02 09:18] LABS: FUNGUS MYCOLOGY CULTURE Final report (())
[2016-09-08 07:28] LABS: FUNGUS MYCOLOGY CULTURE Final report (())
== END 2016-08-12 16:45 | disposition home or self-care (01) | DRG 189 ==
LOC: D.ER 19:09 → D.M2 23:12
PROVIDERS: Emergency Medicine; Family Medicine; Internal Medicine Pulmonary Disease; ADMIT Family Medicine Adult Medicine
PROC: 0BBB8ZX Excision of Left Lower Lobe Bronchus, Via Natural or Artificial Opening Endoscopic, Diagnostic (ICD-10-PCS; principal; 2016-08-06 09:15)
PROC: 0BB78ZX Excision of Left Main Bronchus, Via Natural or Artificial Opening Endoscopic, Diagnostic (ICD-10-PCS; 2016-08-11)
PROC: 0BB38ZX Excision of Right Main Bronchus, Via Natural or Artificial Opening Endoscopic, Diagnostic (ICD-10-PCS; 2016-08-11)
DX: J96.21 Acute and chronic respiratory failure with hypoxia (principal); J18.9 Pneumonia, unspecified organism; S27.431 Laceration of bronchus, unilateral; J44.0 Chronic obstructive pulmonary disease with (acute) lower respiratory infection; J44.1 Chronic obstructive pulmonary disease with (acute) exacerbation; I24.8 Other forms of acute ischemic heart disease; I42.9 Cardiomyopathy, unspecified; J98.11 Atelectasis; T17.590A Other foreign object in bronchus causing asphyxiation, initial encounter; I50.22 Chronic systolic (congestive) heart failure; I48.0 Paroxysmal atrial fibrillation; I11.0 Hypertensive heart disease with heart failure; R79.89 Other specified abnormal findings of blood chemistry; Z79.01 Long term (current) use of anticoagulants; Z95.810 Presence of automatic (implantable) cardiac defibrillator; X58.XXXA Exposure to other specified factors, initial encounter

== ENCOUNTER → 2016-10-19 09:34 | Outpatient (CLI) | payer MEDICARE ==
[2016-07-31 12:12] VITALS: BMI 23.5
[~2016-10-19 09:34] MED LIST changes: +ADVAIR 250/501 DISK INH; +BENZONATATE200 MG PO; +IPRAT-ALBUT 0.5-3 ML INH; +MUCINEX DM ER1 EAC1 PO; +PREDNISONE10 MG PO; +PROAIR HFA8.5 GM INH; +SINGULAIR10 MG PO
== END | disposition home or self-care (01) ==
LOC: D.RAD 10-12 10:15
DX: J44.9 Chronic obstructive pulmonary disease, unspecified (principal)

== ENCOUNTER 2016-11-07 13:21 | Emergency (ER) | payer SELFPAY ==
[2016-07-31 12:12] VITALS: BMI 23.5
[2016-11-07 14:10] LABS: BASOPHILS 0.5 % (0-2); EOSINOPHILS 4.1 % (0-7); HEMATOCRIT 39.4 % (36.0-48.0); HEMOGLOBIN 12.5 g/dL (12-16); IMMATURE GRANULOCYTES 0.1 % (0-5); LYMPHOCYTES 14.9 % (15-50); MCHC 31.7 g/dL (31.0-37.0); MCV 85.1 fL (80.0-100.0); MEAN PLATELET VOLUME 8.7 fL (7.4-10.4); MONOCYTES 16.9 % (2-11); NEUTROPHILS 63.5 % (40-80); PLATELET COUNT 365 10x3/uL (130-400); RBC 4.63 10x6/uL (4.00-5.40); RDW 15.2 % (11.5-14.5); WBC 8.1 10x3/uL (4.8-10.8)
[2016-11-07 14:28] LABS: ALBUMIN 3.1 g/dL (3.4-5.0); ANION GAP 11.8 mmol/L (8-16); BILIRUBIN - TOTAL 0.59 mg/dL (0.2-1.3); CALCIUM 9.1 mg/dL (8.5-10.1); CARBON DIOXIDE 29.2 mmol/L (21.0-32.0); CREATININE - SERUM 1.1 mg/dL (0.6-1.3); PROTEIN - SERUM 7.7 g/dL (6.4-8.2)
== END 2016-11-07 14:59 | disposition home or self-care (01) ==
LOC: D.ER 13:21
PROVIDERS: Emergency Medicine
DX: R06.00 Dyspnea, unspecified (principal); R94.31 Abnormal electrocardiogram [ECG] [EKG]; J44.9 Chronic obstructive pulmonary disease, unspecified

== ENCOUNTER → 2017-02-07 12:22 | Outpatient (CLI) | payer MEDICARE | END | disposition home or self-care (01) | LOC: D.RT 12:22 | DX: J44.9 Chronic obstructive pulmonary disease, unspecified (principal) ==

== ENCOUNTER 2017-09-13 15:48 | Observation (INO) | payer MEDICAID ==
[~2017-09-13] VITALS: Ht 162.6 cm; Wt 79.6 kg
[2017-09-13 16:53] LABS: BASOPHILS 0.7 % (0-2); EOSINOPHILS 5.5 % (0-7); HEMATOCRIT 36.1 % (36.0-48.0); HEMOGLOBIN 11.8 g/dL (12-16); IMMATURE GRANULOCYTES 0.2 % (0-5); LYMPHOCYTES 29.5 % (15-50); MCH 26.3 pg (26.0-34.0); MCHC 32.7 g/dL (31.0-37.0); MCV 80.6 fL (80.0-100.0); MEAN PLATELET VOLUME 8.7 fL (7.4-10.4); MONOCYTES 17.7 % (2-11); NEUTROPHILS 46.4 % (40-80); PLATELET COUNT 311 10x3/uL (130-400); RBC 4.48 10x6/uL (4.00-5.40); RDW 14.6 % (11.5-14.5); WBC 5.9 10x3/uL (4.8-10.8)
[2017-09-13 17:06] LABS: ALBUMIN 3.1 g/dL (3.4-5.0); ANION GAP 14.2 mmol/L (8-16); BILIRUBIN - TOTAL 0.46 mg/dL (0.2-1.3); CALCIUM 8.3 mg/dL (8.5-10.1); CARBON DIOXIDE 25.5 mmol/L (21.0-32.0); POTASSIUM - SERUM 3.7 mmol/L (3.5-5.1); PROTEIN - SERUM 7.5 g/dL (6.4-8.2)
[2017-09-13 17:10] LABS: APPEARANCE CLEAR (CLEAR); BILIRUBIN NEGATIVE (NEGATIVE); COLOR YELLOW (YELLOW); GLUCOSE NEGATIVE (NEGATIVE); KETONE NEGATIVE (NEGATIVE); NITRITE NEGATIVE (NEGATIVE); PROTEIN NEGATIVE (NEGATIVE); UROBILINOGEN NORMAL (NORMAL)
[2017-09-13 17:12] LABS: BACTERIA MODERATE /hpf (NONE SEEN); EPITHELIAL CELLS 0-5 /hpf (0-5); RED CELLS - URINE 0-5 /hpf (0-5); WHITE CELLS - URINE OCC /hpf (0-5)
[2017-09-13 17:24] LABS: TROPONIN-I 0.12 ng/mL (0.000-0.060)
[2017-09-13 19:56] LABS: CKMB 0.5 U/L (0.0-3.6); CREATINE KINASE 63 UL (21-215)
[2017-09-13 20:11] LABS: TROPONIN-I 0.122 ng/mL (0.000-0.060)
[2017-09-13] MEDS ORDERED: PACERONE400 MG PO (23:39)
[2017-09-13 23:58] VITALS: BP 136/84; BMI 27.8
[2017-09-14 03:00] LABS: CKMB 0.7 U/L (0.0-3.6); CREATINE KINASE 71 UL (21-215)
[2017-09-14 03:01] LABS: TROPONIN-I 0.101 ng/mL (0.000-0.060)
[2017-09-14 04:00] VITALS: BP 113/73
[2017-09-14 06:58] LABS: BASOPHILS 1.1 % (0-2); EOSINOPHILS 9.1 % (0-7); HEMATOCRIT 34.4 % (36.0-48.0); LYMPHOCYTES 31.5 % (15-50); MCH 25.9 pg (26.0-34.0); MCV 81.1 fL (80.0-100.0); MEAN PLATELET VOLUME 8.7 fL (7.4-10.4); MONOCYTES 15.1 % (2-11); NEUTROPHILS 43.2 % (40-80); PLATELET COUNT 301 10x3/uL (130-400); RBC 4.24 10x6/uL (4.00-5.40); RDW 14.9 % (11.5-14.5); WBC 5.4 10x3/uL (4.8-10.8)
[2017-09-14 07:58] LABS: CALC OSMOLALITY 268 mosm/kg (275-300); CALCIUM 8.7 mg/dL (8.5-10.1); CARBON DIOXIDE 27.6 mmol/L (21.0-32.0); CHLORIDE - SERUM 99 mmol/L (98-107); CKMB 0.7 U/L (0.0-3.6); CREATINE KINASE 62 UL (21-215); GLUCOSE 105 mg/dL (74-106); MAGNESIUM - SERUM 1.9 mg/dL (1.8-2.4); POTASSIUM - SERUM 3.8 mmol/L (3.5-5.1); SODIUM 135 mmol/L (136-145); UREA NITROGEN 11 mg/dL (7-18); eGFR NON AFRICAN AMERICAN 60 mL/min (90-120)
[2017-09-14 07:59] LABS: TROPONIN-I 0.107 ng/mL (0.000-0.060)
[2017-09-14 09:16] VITALS: BP 123/81
[2017-09-14 12:54] VITALS: BP 104/76
[2017-09-14 15:30] VITALS: Ht 162.6 cm; Wt 79.6 kg
[2017-09-14 17:05] VITALS: BP 115/77
[2017-09-14 17:55] LABS: % SATURATION 5 % (15-55); IRON 20 ug/dl (35-150); TOTAL IRON BIND CAPACITY 394 ug/dl (260-445); UNSAT IRON BIND CAPACITY 374 ug/dl (150-375)
[2017-09-14 18:07] LABS: FERRITIN 23 ng/mL (3-244); PRO BNP 440 pg/mL (0-125)
[2017-09-14 19:00] VITALS: BP 94/60
[2017-09-15 04:00] VITALS: BP 114/71; BP 115/76
[2017-09-15 05:22] LABS: HEMATOCRIT 33.9 % (36.0-48.0); HEMOGLOBIN 10.9 g/dL (12-16); IMMATURE GRANULOCYTES 0.2 % (0-5); LYMPHOCYTES 34.9 % (15-50); MCH 26.3 pg (26.0-34.0); MCHC 32.2 g/dL (31.0-37.0); MCV 81.7 fL (80.0-100.0); MEAN PLATELET VOLUME 9.1 fL (7.4-10.4); MONOCYTES 14.3 % (2-11); NEUTROPHILS 36.6 % (40-80); PLATELET COUNT 301 10x3/uL (130-400); RBC 4.15 10x6/uL (4.00-5.40); RDW 14.5 % (11.5-14.5); WBC 5.3 10x3/uL (4.8-10.8)
[2017-09-15 05:43] LABS: ANION GAP 9.7 mmol/L (8-16); CALCIUM 8.8 mg/dL (8.5-10.1); CHOL - HDL RATIO 2.5 ratio (2.3-4.1); LDL-HDL RATIO 1.2 ratio (1.5-3.5); POTASSIUM - SERUM 3.7 mmol/L (3.5-5.1)
[2017-09-15 09:44] VITALS: BP 109/68
[2017-09-15 16:20] VITALS: BP 103/65
[2017-09-15 20:00] VITALS: BP 93/60
[2017-09-16 04:00] VITALS: BP 113/73
[2017-09-16 07:52] VITALS: BP 110/56
[2017-09-16 08:20] LABS: FOLATE (FOLIC ACID) - SERUM 4.6 ng/mL (>3.0)
[2017-09-16 11:28] VITALS: BP 103/72
== END 2017-09-16 14:00 | disposition home or self-care (01) ==
LOC: D.ER 15:48 → OBSVTIME 18:53 → D.M2 18:53 → D.EDHOLD 18:53 → D.M2 20:10
PROVIDERS: Family Medicine; Internal Medicine Nephrology; Physician Assistant
DX: I50.9 Heart failure, unspecified (principal); J44.1 Chronic obstructive pulmonary disease with (acute) exacerbation; I42.9 Cardiomyopathy, unspecified; I48.0 Paroxysmal atrial fibrillation; Z95.0 Presence of cardiac pacemaker; D50.9 Iron deficiency anemia, unspecified; I08.3 Combined rheumatic disorders of mitral, aortic and tricuspid valves

== ENCOUNTER → 2017-10-03 08:06 | Outpatient (CLI) | payer BC ==
[2017-09-14 15:30] VITALS: BMI 27.8
== END | disposition home or self-care (01) ==
LOC: D.RAD 08:06
DX: J45.909 Unspecified asthma, uncomplicated (principal)

== ENCOUNTER 2018-02-24 17:10 | Emergency (ER) | payer MEDICAID ==
[2018-02-24 17:49] VITALS: Ht 162.6 cm
[2018-02-24 18:17] LABS: BASOPHILS 0.6 % (0-2); EOSINOPHILS 4.4 % (0-7); HEMATOCRIT 34.5 % (36.0-48.0); HEMOGLOBIN 11.3 g/dL (12-16); IMMATURE GRANULOCYTES 0.2 % (0-5); LYMPHOCYTES 28.7 % (15-50); MCH 25.7 pg (26.0-34.0); MCHC 32.8 g/dL (31.0-37.0); MCV 78.4 fL (80.0-100.0); MEAN PLATELET VOLUME 9.2 fL (7.4-10.4); MONOCYTES 14.1 % (2-11); PLATELET COUNT 359 10x3/uL (130-400); RDW 16.1 % (11.5-14.5); WBC 6.6 10x3/uL (4.8-10.8)
[2018-02-24 18:32] LABS: ALBUMIN 2.9 g/dL (3.4-5.0); ALKALINE PHOSPHATASE 144 U/L (46-116); ALT (SGPT) 31 U/L (10-68); BILIRUBIN - TOTAL 0.41 mg/dL (0.2-1.3); CALC OSMOLALITY 262 mosm/kg (275-300); CALCIUM 8.4 mg/dL (8.5-10.1); CARBON DIOXIDE 28.7 mmol/L (21.0-32.0); CHLORIDE - SERUM 97 mmol/L (98-107); CREATININE - SERUM 1.1 mg/dL (0.6-1.3); GLUCOSE 97 mg/dL (74-106); POTASSIUM - SERUM 4.3 mmol/L (3.5-5.1); PROTEIN - SERUM 7.2 g/dL (6.4-8.2); SODIUM 132 mmol/L (136-145); UREA NITROGEN 8 mg/dL (7-18); eGFR NON AFRICAN AMERICAN 54 mL/min (90-120)
[2018-02-24 18:47] LABS: CKMB 0.8 U/L (0.0-3.6); CREATINE KINASE 61 UL (21-215)
[2018-02-24] MEDS ORDERED: HYDROCODON-ACE1 EAC7 PO (19:59)
[2018-02-24 21:06] VITALS: BP 119/78
== END 2018-02-24 21:07 | disposition home or self-care (01) ==
LOC: D.ER 17:10
PROVIDERS: Emergency Medicine
DX: R10.9 Unspecified abdominal pain (principal); R06.02 Shortness of breath; R07.9 Chest pain, unspecified; Z95.0 Presence of cardiac pacemaker; I48.91 Unspecified atrial fibrillation; I42.9 Cardiomyopathy, unspecified; J44.9 Chronic obstructive pulmonary disease, unspecified

== ENCOUNTER → 2018-03-27 13:27 | Outpatient (CLI) | payer MEDICAID ==
[2018-02-24 17:49] VITALS: BMI 27.8
[~2018-03-27 13:27] MED LIST changes: +HYDROCODON-ACE1 EAC7 PO; +PROMETHAZINE W473 ML PO
== END | disposition home or self-care (01) ==
LOC: D.RT 13:27
DX: J45.909 Unspecified asthma, uncomplicated (principal)

== ENCOUNTER 2018-04-26 08:48 | Outpatient (CLI) | payer MEDICAID ==
[~2018-04-26] VITALS: Ht 162.6 cm; Wt 79.5 kg
--- NOTE | ~2018-04-26 | HEMODYNAMI ---
PATIENT:GINI ODEN MEDICAL RECORD: [id number] : 58 LOCATION:[facility] ADMISSION DATE: 04/26/18 Generatedon:04/26/201810:42 Patient name: GINI ODEN Patient #: [id number] SSN: [id number] : 1960 Date of study: 04/26/2018 Page: Of Hemodynamic Procedure Report Patient Data Patient Demographics Procedure consent was obtained First Name: GINI Gender: Female Last Name: CECILLE : 1960 Middle Initial: R Age: 57 year(s) Patient #: [id number] Race: SSN: [id number] Additional ID: [id number] Contact details [address]: [address] [place] [address] State: [place] City: [place] Zip code: [address] Past Medical History Allergies Allergen Reaction Date Comments Reported Penicillins 02/19/2016 Penicillins Skin ->itching 02/19/2016 Other allergy 04/26/2018 [facility] Admission Admission Data Admission Date: 04/26/2018 Admission Time: 8:48 Admit Source: Other Weight (lbs.): 176.37 Weight (kg.): 80 Lab Results Lab Result Date: 04/26/2018 Lab Result Time: 0:00 Biochemistry Name Units Result Min Max BUN mg/dl 7 --(*---)-- 7 18 Creatinine mg/dl 1 --(--*-)-- 0.6 1.3 CBC Name Units Result Min Max Hemoglobin g/dl 12.6 -*(----)-- 13.5 17.5 Platelets 10^3/l 349 --(---*)-- 130 400 Procedure Procedure Types Cath Procedure Diagnostic Procedure [facility] Procedure Description Procedure Date Procedure Date: 04/26/2018 Procedure Start Time: 10:29 Procedure End Time: 10:36 Procedure Staff Name Function Casimiro Go MD Performing Physician Amor Ragland RT Monitor Juan Miguel Blum RT Scrub Brandin Groves RN Nurse Procedure Data Cath Procedure Fluoroscopy Diagnostic fluoroscopy Total fluoroscopy Time: 1.3 time: 1.3 min min Diagnostic fluoroscopy Total fluoroscopy dose: 77 dose: 77 mGy mGy Contrast Material Contrast Material Type Amount (ml) Isovue 300 47 Entry Location Entry Primary Successful Side Size Upsize Upsize Entry Closure Succes sful Closure Location (Fr) 1 (Fr) 2 (Fr) Remarks Device Remarks Femoral Right 5 Fr Exoseal artery Estimated blood loss: 10 ml Diagnostic catheters Device Type Used For End Catheter Placement MULTIPACK Pigtail 5 Fr Procedure catheter MULTIPACK JL 4.0 5Fr Procedure catheter MULTIPACK 3DRC 5Fr Procedure catheter Procedure Complications No complications Procedure Medications Medication Administration Route Dosage Oxygen etCO2 Nasal cannula 2 l/min Lidocaine 2% added to field 20 Heparin Flush Bag added to field 2 bags (1000units/500ml NS) 0.9% NaCl I.V. 100 ml/hr Versed I.V. 1 mg Fentanyl I.V. 50 mcg Versed I.V. 1 mg Fentanyl I.V. 50 mcg Versed I.V. 1 mg Hemodynamics Rest HGB: 12.6 (g/dl) Heart Rate: 71 (bpm) Pressure Samples Time Site Value (mmHg) Purpose Heart Use Rate(bpm) 10:32 AO 76/59(66) Snapshot 70 Snapshots Pre Cath Intra NCS Post Cath Vital Signs Time Heart Resp SPO2 etCO2 NIBP (mmHg) Rhythm Pain Sedation Rate (ipm) (%) (mmHg) Status Level (bpm) 10:11:08 70 12 100 28.1 114/84(100) Paced 0 (11) 10(A) , No pain 10:15:16 69 20 100 31.1 100/76(86) Paced 0 (11) 10(A) , No pain 10:19:20 69 24 98 19 87/62(69) Paced 0 (11) 10(A) , No pain 10:23:19 50 14 98 29.6 98/72(82) Paced 0 (11) 10(A) , No pain 10:27:21 69 14 98 28.8 103/78(88) Paced 0 (11) 10(A) , No pain 10:31:27 69 15 97 28.1 93/70(81) Paced 0 (11) 9(A) , No pain 10:35:31 69 15 96 31.9 99/66(76) Paced 0 (11) 10(A) , No pain Medications Time Medication Route Dose Verified Delivered Reason Notes Effe ctiveness by by 10:09:46 Oxygen etCO2 2 Casimiro Harveyie used for Nasal l/min Abbi Groves RN procedure cannula 10:09:52 Lidocaine 2% added 20ml Casimiro Buffie used for to vial Abbi Groves RN procedure field 10:09:58 Heparin Flush added 2 Casimiro Buffie used for Bag to bags Abbi Groves RN procedure (1000units/500ml field NS) 10:10:07 0.9% NaCl I.V. 100 Casimiro Ghotra Per ml/hr Abbi Groves RN physician 10:27:37 Versed I.V. 1 mg Casimiro Ghotra for Abbi Groves RN sedation 10:27:43 Fentanyl I.V. 50 Casimiro Harveyie for mcg Abbi Groves RN sedation 10:30:44 Versed I.V. 1 mg Casimiro Ghotra for Abbi Groves RN sedation 10:30:48 Fentanyl I.V. 50 Casimiro Ghotra for mcg Abbi Groves RN sedation 10:33:28 Versed I.V. 1 mg Casimiro Ghotra for Abbi Groves RN sedation Procedure Log Time Note 9:45:39 Brandin Groves RN sent for patient. Start room use. 10:01:23 Admit Source: Other 10:01:45 Time tracking: Regular hours (M-F 7:00 - 5:00) 10:01:48 Plan of Care:Hemodynamics will remain stable., Cardiac rhythm will remain stable., Comfort level will be maintained., Respiratory function will remain adequate., Patient/ family verbilizes understanding of procedure., Procedure tolerated without complication., Recovers from procedure without complications.. 10:01:55 Patient received from Pre/Post Procedure Room to CCL 3 Alert and oriented. Tansferred to table in Supine position. 10:01:56 Warm blankets applied, and sarah hugger turned on for patient comfort. 10:01:57 Correct patient and procedure confirmed by team. 10:01:59 Signed procedure consent form obtained from patient. 10:02:00 ECG and BP/O2 sat monitors applied to patient. 10:02:11 H&P Date Dictated: 04/18/2018 Within 30 days and on chart., H&P Addendum completed by physician on day of procedure. (MUST COMPLETE FOR ALL OUTPATIENTS). 10:02:13 Pre-procedure instructions explained to patient. 10:02:14 Pre-op teaching completed and patient verbalized understanding. 10:02:14 Family in waiting room. 10:02:16 Patient NPO since Midnight. 10:02:29 Patient allergic to Other allergyPCN 10:02:31 Is the patient allergic to Iodine/contrast media? No. 10:02:34 Was the patient premedicated? No 10:09:46 Oxygen 2 l/min etCO2 Nasal cannula was administered by Brandin Groves RN; used for procedure; 10::52 Lidocaine 2% 20ml vial added to field was administered by Brandin Groves RN; used for procedure; 10:09:58 Heparin Flush Bag (1000units/500ml NS) 2 bags added to field was administered by Brandin Groves RN; used for procedure; 10:10:07 0.9% NaCl 100 ml/hr I.V. was administered by Brandin Groves RN; Per physician; 10:10:11 Vital chart was started 10:10:21 Baseline sample Acquired. 10:10:25 Rhythm: paced 10:10:26 Full Disclosure recording started 10:10:47 Is patient on blood thinner?No 10:11:07 Last dose of Xarelto was 12.3.18 10:11:10 Patient diabetic? No. 10:11:13 Previous problem with sedation/anesthesia? No ? 10:11:15 Snore? No 10:11:22 Sleep apnea? No 10:11:23 Deviated septum? No 10:11:24 Opens mouth fully? Yes 10:11:24 Sticks out tongue? Yes 10:11:34 Airway obstruction? Yes COPD, ASTHMA 10:11:38 Dentures? No ? 10:11:40 Pre procedure: right dorsailis pedis pulse 1+ Palpable, but thready & weak; easily obliterated 10:11:42 Patient pain scale 0/10 ?. 10:11:49 IV patent on arrival in left forearm with 0.9% NaCl at O. 10:11:51 Lab results completed and on chart. 10:11:54 Right groin area was prepped with chlora-prep and draped in sterile fashion 10:11:55 Alarms reviewed by Williams. N. 10:11:55 Sharps counted by scrub and verified by R.N. 10:12:01 Use device set Femoral Dx 10:12:02 Tegaderm 4 x 4 (1626W) opened to sterile field. 10:12:03 ACIST Manifold (02101) opened to sterile field. 10:12:04 ACIST Hand Control (79981) opened to sterile field. 10:12:05 Medline Cath Pack ([id number]) opened to sterile field. 10:12:05 Bag Decanter (2002S) opened to sterile field. 10:12:06 ACIST Syringe (17279) opened to sterile field. 10:12:06 DIAGNOSTIC WIRE .035 260cm J wire (862238) opened to sterile field. 10:12:07 DIAGNOSTIC Multipack 5Fr catheter set (AR4359) opened to sterile field. 10:12:08 SHEATH 5FR [place] (RYN663) opened to sterile field. 10:20:14 Patient Weight : 176.37 lbs 10:20:53 Lab Result : BUN 7 mg/dl 10:20:53 Lab Result : Platelets 349 10^3/l 10:20:53 Lab Result : Hemoglobin 12.6 g/dl 10:20:53 Lab Result : Creatinine 1 mg/dl 10:24:09 --------ALL STOP TIME OUT------ 10:24:09 Final Timeout: patient, procedure, and site verified with staff and physician. All members of the team are in agreement. 10:24:12 Right groin site verified by team. 10:24:15 Physical assessment completed. ASA score P 2 - A patient with mild systemic disease as per Casimiro Go MD. 10:24:19 Sedation plan: IV Moderate Sedation Medication:Versed, Fentanyl 10:27:37 Versed 1 mg I.V. was administered by Brandin Groves RN; for sedation; 10::43 Fentanyl 50 mcg I.V. was administered by Brandin Groves RN; for sedation; 10:29:10 Procedure started. 10:29:12 Local anesthetic to right femoral artery with Lidocaine 2% by Casimiro Go MD.INITIAL ACCESS ONLY 10:30:07 A 5 Fr sheath was inserted into the Right Femoral artery 10:30:13 Zero performed for pressure channel P1 10:30:16 Zero performed for pressure channel P1 10:30:18 Zero performed for pressure channel P1 10:30:44 Versed 1 mg I.V. was administered by Brandin Groves RN; for sedation; 10:30:48 Fentanyl 50 mcg I.V. was administered by Brandin Groves RN; for sedation; 10:30:51 A MULTIPACK Pigtail 5 Fr catheter was advanced over the wire and used for Procedure. 10:31:06 LV angiography performed. 10:31:08 LV gram done using MCINTOSH 10:31:13 EF : 35 % 10:31:19 Injector settings: Ml/sec: 10, Volume: 20, 10:31:21 Catheter removed. 10:31:25 A MULTIPACK JL 4.0 5Fr catheter was advanced over the wire and used for Procedure. 10:32:27 LCA angiography performed. 10:32:30 Catheter removed. 10:33:05 A MULTIPACK 3DRC 5Fr catheter was advanced over the wire and used for Procedure. 10:33:28 Versed 1 mg I.V. was administered by Brandin Groves RN; for sedation; 10:33:28 RCA angiography performed. 10:33:29 Catheter removed. 10:33:31 EXOSEAL 5Fr (EX500) opened to sterile field. 10:33:45 Sheath removed intact; hemostasis achieved with Exoseal to the Right Femoral artery. 10:33:47 Procedure ended.(Physican Out) 10:34:02 Fluoroscopy time 01.30 minutes. 10:34:06 Fluoroscopy dose: 77 mGy 10:34:06 Flurop Dose total: 77 10:35:50 Contrast amount:Isovue 300 47ml. 10:35:56 Sharps counted by scrub and verified by R.N. 10:35:58 Insertion/operative site no bleeding no hematoma. 10:36:00 Post-op/insertion site Right Femoral artery dressed using a 4 x 4 and Tegaderm. 10:36:01 Post Procedure Pulses reassessed and unchanged 10:36:03 Post-procedure physical assessment completed. ASA score P 2 - A patient with mild systemic disease as per Casimiro Go MD. 10:36:05 Post procedure rhythm: unchanged. 10:36:07 Estimated blood loss: 10 ml 10:36:10 Post procedure instruction explained to patient.Patient verbalizes understanding. 10:36:10 Patient needs reinforcement of post procedure teaching. 10:36:16 Procedure and supply charges have been captured, reviewed, submitted and are correct. 10:36:18 Procedure Complication : No complications 10:36:37 Vital chart was stopped 10:36:38 See physician's report for complete and final results. 10:36:45 Report given to Pre/Post Procedure Room. 10:36:48 Patient transfered to Pre/Post Procedure Room with Stretcher. 10:36:50 Procedure ended. 10:36:50 Full Disclosure recording stopped 10:41:40 End room use (Document Last) Device Usage Item Name Manufacture Quantity Catalog Hospital Part Current Minimal L ot# / Number Charge Number Stock Stock Serial# Code Tegaderm 4 3M 1 1626W [id number] 5 x 4 (1626W) ACIST Acist 1 09873 778769 780947 264539 5 Manifold Medical (75713) Systems Inc ACIST Hand Acist 1 20272 762807 216466 642268 5 Control Medical (00045) Systems Inc Medline Medline 1 [id number] 096647 58777 070568 5 Cath Pack ([id number]) Bag Microtek 1 2001S 972798 81522 014701 5 Decanter Medical Inc. () ACIST Acist 1 37918 123090 161083 245478 20 Syringe Medical (50024) Systems Inc DIAGNOSTIC [facility] [place] 1 666922 426730 258849 591352 30 WIRE .035 260cm J wire (741990) DIAGNOSTIC Cardinal 1 HU9039 149321 22908 974799 30 Multipack Health 5Fr catheter set (BW2345) SHEATH 5FR Terumo 1 XRI015 533746 318426 786937 40 [place] (VMS798) MULTIPACK Cardinal 1 730712 5 Pigtail 5 Health Fr catheter MULTIPACK Cardinal 1 482627 5 JL 4.0 5Fr Health catheter MULTIPACK Cardinal 1 051457 5 3DRC 5Fr Health catheter EXOSEAL 5Fr Cardinal 1 EX500 456987 374279 935066 10 (EX500) Health Signature Audit Peach Bottom Stage Time Signature Unsigned Intra-Procedure 04/26/2018 Amor Ragland 10:42:00 AM RT(R) Signatures Monitor : Amor Ragland RT Signature : Date : Time : [address] [place] [address]
--- NOTE | ~2018-04-26 | OP ---
PATIENT NAME: GINI ODEN MEDICAL RECORD: [id number] :58 LOCATION:D.CAT ADMISSION DATE: SURGEON: RENALDO LOBO MD DATE OF OPERATION: 04/26/2018 PROCEDURES: 1. Left heart catheterization. 2. Selective coronary angiography. 3. Left ventriculogram. INDICATION: Shortness of breath, dyspnea on exertion, cardiomyopathy. PROCEDURE IN DETAIL: After informed consent was obtained and after a detailed description of the risks, benefits as well as alternative therapies, the patient elected to proceed with angiogram and heart catheterization. FINDINGS: Left ventriculogram was performed in standard 30-degree MCINTOSH view reveals global hypokinesis throughout all segments. Overall ejection fraction in the 30% to 35% range. SELECTIVE CORONARY ANGIOGRAPHY: Left main, left anterior descending, left circumflex, right coronary artery are all smooth-walled vessels with no angiographic evidence of coronary artery disease. OVERALL IMPRESSION: 1. No angiographic evidence of coronary artery disease. 2. Nonischemic cardiomyopathy, ejection fraction 30% to 35%. Center medical management on treatment of the cardiomyopathy and congestive heart failure symptomatology. TRANSINT:[id number] Voice Confirmation ID: [id number] DOCUMENT ID: [id number] RENALDO LOBO MD at 1025 CC: [id number] DICTATION DATE: 04/26/18 1038 ERP BUSINESS ANALYST: 04/26/18 1159 DEP CLI 04/26/18 [id number] [place] [address]
[~2018-04-26 08:48] MED LIST changes: -PROMETHAZINE W473 ML PO
[2018-04-26] MEDS ORDERED: PROMETHAZINE W473 ML PO (09:18)
[2018-04-26 09:31] VITALS: BP 114/76; Ht 162.6 cm; Wt 79.5 kg
[2018-04-26 10:01] LABS: BASOPHILS 0.7 % (0-2); EOSINOPHILS 7.9 % (0-7); HEMATOCRIT 38.8 % (36.0-48.0); HEMOGLOBIN 12.6 g/dL (12-16); IMMATURE GRANULOCYTES 0.2 % (0-5); LYMPHOCYTES 22.7 % (15-50); MCH 26.6 pg (26.0-34.0); MCHC 32.5 g/dL (31.0-37.0); MEAN PLATELET VOLUME 9.2 fL (7.4-10.4); MONOCYTES 17.8 % (2-11); NEUTROPHILS 50.7 % (40-80); PLATELET COUNT 349 10x3/uL (130-400); RBC 4.73 10x6/uL (4.00-5.40); RDW 16.3 % (11.5-14.5); WBC 5.6 10x3/uL (4.8-10.8)
[2018-04-26 10:08] LABS: ANION GAP 12.8 mmol/L (8-16); CALCIUM 9.1 mg/dL (8.5-10.1); CARBON DIOXIDE 29.9 mmol/L (21.0-32.0); POTASSIUM - SERUM 3.7 mmol/L (3.5-5.1)
== END 2018-04-26 12:25 ==
LOC: D.CATH 08:48
PROVIDERS: Internal Medicine Interventional Cardiology
DX: I42.9 Cardiomyopathy, unspecified (principal); I50.9 Heart failure, unspecified; I48.91 Unspecified atrial fibrillation

== ENCOUNTER 2018-06-03 12:52 | Inpatient (IN) | payer MEDICAID ==
[~2018-06-03] VITALS: Ht 162.6 cm; Wt 91.0 kg
[2018-06-03] VITALS (12 sets, daily range): BP systolic 97–122; BP diastolic 59–83
[~2018-06-03 12:52] MED LIST changes: +PROMETHAZINE W473 ML PO
[2018-06-03 15:32] LABS: BASOPHILS 0.5 % (0-2); EOSINOPHILS 4.2 % (0-7); HEMATOCRIT 33.4 % (36.0-48.0); HEMOGLOBIN 10.9 g/dL (12-16); IMMATURE GRANULOCYTES 0.2 % (0-5); LYMPHOCYTES 20.1 % (15-50); MCH 25.9 pg (26.0-34.0); MCHC 32.6 g/dL (31.0-37.0); MCV 79.3 fL (80.0-100.0); MEAN PLATELET VOLUME 8.6 fL (7.4-10.4); MONOCYTES 15.4 % (2-11); NEUTROPHILS 59.6 % (40-80); PLATELET COUNT 306 10x3/uL (130-400); RBC 4.21 10x6/uL (4.00-5.40); RDW 15.5 % (11.5-14.5); WBC 6.2 10x3/uL (4.8-10.8)
[2018-06-03 15:45] LABS: ALBUMIN 2.8 g/dL (3.4-5.0); ANION GAP 10.1 mmol/L (8-16); BILIRUBIN - TOTAL 0.49 mg/dL (0.2-1.3); CALCIUM 7.8 mg/dL (8.5-10.1); CREATININE - SERUM 0.9 mg/dL (0.6-1.3); POTASSIUM - SERUM 4.1 mmol/L (3.5-5.1); PROTEIN - SERUM 7.2 g/dL (6.4-8.2)
[2018-06-03 15:59] LABS: APPEARANCE CLEAR (CLEAR); BILIRUBIN NEGATIVE (NEGATIVE); COLOR STRAW (YELLOW); EPITHELIAL CELLS 0-5 /hpf (0-5); GLUCOSE NEGATIVE (NEGATIVE); KETONE NEGATIVE (NEGATIVE); NITRITE NEGATIVE (NEGATIVE); PROTEIN NEGATIVE (NEGATIVE); RED CELLS - URINE OCC /hpf (0-5); UROBILINOGEN NORMAL (NORMAL); WHITE CELLS - URINE NSEEN /hpf (0-5)
--- NOTE | 2018-06-03 21:28 | NUR ---
PT TO FLOOR VIA WHEELCHAIR. ALERT AND ORIENTED X 4. UP AB WAGNER. DENIES PAIN AT THIS TIME. PRODUCTIVE COUGH NOTED. L AC IV WITH NS @ 100 CC/HR. ROOM AIR. PT STATES USING O2 AT HOME. HX OF CHF AND HTN. PT DENIES FURTHER CONCERNS AT THIS TIME. BED LOWERED AND LOCKED. CL IN REACH. CPOC.
[2018-06-04] VITALS (7 sets, daily range): BP systolic 107–125; BP diastolic 49–76; BMI 29.2
--- NOTE | 2018-06-04 04:09 | NUR ---
PT RESTING IN BED WITH RESPS EVEN/NONLABORED. NO DISTRESS. MONITOR AND CPOC.
[2018-06-04 06:03] LABS: BASOPHILS 0 % (0-2); EOSINOPHILS 0 % (0-7); HEMATOCRIT 32.2 % (36.0-48.0); HEMOGLOBIN 10.4 g/dL (12-16); IMMATURE GRANULOCYTES 0.2 % (0-5); LYMPHOCYTES 8.3 % (15-50); MCH 25.9 pg (26.0-34.0); MCHC 32.3 g/dL (31.0-37.0); MCV 80.1 fL (80.0-100.0); MEAN PLATELET VOLUME 9.2 fL (7.4-10.4); MONOCYTES 3.6 % (2-11); NEUTROPHILS 87.9 % (40-80); PLATELET COUNT 344 10x3/uL (130-400); RBC 4.02 10x6/uL (4.00-5.40); RDW 15.6 % (11.5-14.5); WBC 6.2 10x3/uL (4.8-10.8)
[2018-06-04 06:22] LABS: ANION GAP 14.2 mmol/L (8-16); CALCIUM 8.4 mg/dL (8.5-10.1); CARBON DIOXIDE 25.4 mmol/L (21.0-32.0); POTASSIUM - SERUM 3.6 mmol/L (3.5-5.1)
--- NOTE | 2018-06-04 07:30 | NUR ---
A/A/OX4. DENIES ANY PAIN AT THIS TIME AND NO REQUESTS VOICED. SOME WHEEZING RESP NOTED BUT DENIES ANY SOB ON RA WITH SP02 READING OF 96%. BED IN LOW POSITION WITH SIDERAILS UP X 2 AND CALL LIGHT IN REACH. ASSESSMENT COMPLETED.
--- NOTE | 2018-06-04 09:01 | NUR ---
C/O PAIN AT IV SITE. REDDENED AND SOME SLIGHT SWELLING. DC'D WITH TIP INTACT AND RESTARTED IN LEFT HAND WITH 20 GAUGE. PT STATES NO PAIN WITH INFUSION OF FLUID NOW. TOLERATED WELL.
--- NOTE | 2018-06-04 12:07 | NUR ---
RN ROUNDING DONE WITH PATIENT SITTING ON SIDE OF BED. LEFT AC PIC SEEN WITH NS INFUSING AT 100 CC/HR. ON ROOM AIR. DENIES NEEDS AT THIS TIME. VITAL SIGNS ARE BEING TAKEN.
--- NOTE | 2018-06-04 19:24 | NUR ---
REPORT RECEIVED. PT SITTING UP IN BED WITH EYES OPEN, RR EVEN AND UNLABORED. BED IN LOW POSITION. NO S/S OF DISTRESS. DENIES NEEDS. CALL LIGHT IN REACH. WILL CTM.
[2018-06-05] VITALS (7 sets, daily range): BP systolic 98–130; BP diastolic 59–86; Ht 162.6 cm; Wt 91.0 kg
--- NOTE | 2018-06-05 01:01 | NUR ---
PT LYING ON RIGHT SIDE OF BED WITH EYES OPEN, MIDNIGHT MEDS ADMINISTERED WITHOUT ISSUE. NO S/S OF DISTRESS. RR EVEN AND UNLABORED. OXYGEN AT 2 LITERS BY NASAL CANNULA. BED IN LOW POSITION. CALL LIGHT IN REACH. WILL CTM.
--- NOTE | 2018-06-05 03:42 | NUR ---
PT LYING IN BED WITH EYES CLOSED, RR EVEN AND UNLABORED. NS INFUSING ORDERED THROUGH LEFT HAND PIV. NO S/S OF DISTRESS. OXYGEN AT 2 LITERS BY NASAL CANNULA. BED IN LOW POSITION. CALL LIGHT IN REACH. WILL CTM.
--- NOTE | 2018-06-05 04:04 | NUR ---
PT RESTING IN BED WITH NO DISTRESS. RESPS NONLABORED. MONITOR AND CPOC. CALL LIGHT IN REACH.
[2018-06-05 07:51] LABS: BASOPHILS 0 % (0-2); EOSINOPHILS 0 % (0-7); HEMATOCRIT 29.5 % (36.0-48.0); HEMOGLOBIN 9.2 g/dL (12-16); IMMATURE GRANULOCYTES 0.2 % (0-5); LYMPHOCYTES 6.6 % (15-50); MCH 25.6 pg (26.0-34.0); MCHC 31.2 g/dL (31.0-37.0); MEAN PLATELET VOLUME 9.2 fL (7.4-10.4); MONOCYTES 3.2 % (2-11); PLATELET COUNT 310 10x3/uL (130-400); RBC 3.59 10x6/uL (4.00-5.40); RDW 15.8 % (11.5-14.5)
[2018-06-05 07:54] LABS: MCV 82.2 fL (80.0-100.0); WBC 8.4 10x3/uL (4.8-10.8)
--- NOTE | 2018-06-05 08:05 | NUR ---
PATIENT IS ALERT/ORIENT. CALL LIGHT WITHIN REACH. VOICES NO NEEDS AT THIS TIME. LEFT HAND PERIPHERAL RUNNING WITH NORMAL SALINE AT 100CC/HR. VOICES NO NEEDS AT THIS TIME. WILL CONTINUE WITH PLAN OF CARE
[2018-06-05 08:08] LABS: ALBUMIN 2.6 g/dL (3.4-5.0); ANION GAP 13.5 mmol/L (8-16); BILIRUBIN - TOTAL 0.41 mg/dL (0.2-1.3); CALCIUM 8.2 mg/dL (8.5-10.1); CARBON DIOXIDE 23.7 mmol/L (21.0-32.0); CREATININE - SERUM 0.9 mg/dL (0.6-1.3); MAGNESIUM - SERUM 1.7 mg/dL (1.8-2.4); POTASSIUM - SERUM 4.2 mmol/L (3.5-5.1); PROTEIN - SERUM 6.6 g/dL (6.4-8.2)
--- NOTE | 2018-06-05 10:06 | NUR ---
RESTS WITH EYES CLOSED. RESP UL ON . CALL LIGHT IN REACH. WILL CONT. PLAN OF CARE.
--- NOTE | 2018-06-05 12:23 | NUR ---
PATIENT RESTING WELL. OXYGEN ON AT 2L PER N/C. VOICES NO NEEDS AT THIS TIME.
--- NOTE | 2018-06-05 13:01 | NUR ---
RESPITORY THERAPIST IN ROOM. PATIENT GETTING BREATHING TREATMENTS
--- NOTE | 2018-06-05 16:52 | NUR ---
PATIENT TAKING SELF TO BATHROOM. STEADY GAIT
--- NOTE | 2018-06-05 17:17 | NUR ---
OT NOTE: PT COMPLETED BED MOB WITH SPV. PT ADL MOB WITH SBA. PT COMPLETED BUE AROM EXS. THANK YOU, AIDA PACK
--- NOTE | 2018-06-05 20:15 | NUR ---
RECIEVED BEDSIDE REPORT. PT VSS, AAO X3, RESP UNLABORED. PT C/O PAIN IN HER LEFT CHEST. PT STATES HER PAIN IS A 3/10. PT STATES PAIN IS BETTER NOW THAN WHAT IT WAS FEW HOURS AGO. WILL CTM. MEDS GIVEN. PT DENIES NEEDS FOR PAIN AT THIS TIME. WILL CONTINUE POC. CL IN REACH, BED IN LOW.
[2018-06-06 03:55] VITALS: BP 119/81
[2018-06-06 05:47] LABS: BASOPHILS 0 % (0-2); EOSINOPHILS 0 % (0-7); HEMATOCRIT 29.1 % (36.0-48.0); HEMOGLOBIN 9.1 g/dL (12-16); IMMATURE GRANULOCYTES 0.4 % (0-5); LYMPHOCYTES 5.6 % (15-50); MCH 25.9 pg (26.0-34.0); MCHC 31.3 g/dL (31.0-37.0); MCV 82.7 fL (80.0-100.0); MEAN PLATELET VOLUME 9.1 fL (7.4-10.4); MONOCYTES 5.6 % (2-11); NEUTROPHILS 88.4 % (40-80); PLATELET COUNT 303 10x3/uL (130-400); RBC 3.52 10x6/uL (4.00-5.40); RDW 16.2 % (11.5-14.5)
[2018-06-06 06:23] LABS: ALBUMIN 2.5 g/dL (3.4-5.0); ANION GAP 10.5 mmol/L (8-16); BILIRUBIN - TOTAL 0.38 mg/dL (0.2-1.3); CALCIUM 8.2 mg/dL (8.5-10.1); CARBON DIOXIDE 25.7 mmol/L (21.0-32.0); CREATININE - SERUM 0.9 mg/dL (0.6-1.3); MAGNESIUM - SERUM 1.6 mg/dL (1.8-2.4); POTASSIUM - SERUM 4.2 mmol/L (3.5-5.1); PROTEIN - SERUM 6.2 g/dL (6.4-8.2)
[2018-06-06 08:39] VITALS: BP 142/79
--- NOTE | 2018-06-06 08:39 | NUR ---
ALERT AND ORIENTED. NO DISTRESS NOTED. ATE BREAKFAST. N0 C/O PAIN.
--- NOTE | 2018-06-06 10:29 | NUR ---
DC INSTRUCTIONS GIVEN. VERBALIZES UNDERSTANDING. IS ON O2 AT HOME AND TOLD HER SOMEONE NEEDED TO BRING O2 WHEN THEY PICK HER UP. SHE STATES SHE KEEPS IT IN HER CAR. HER WILL PICK HER UP AROUND 8PM TONIGHT AFTER WORK. HER TELEMETRY WILL NEED TO BE TAKEN OFF AND HER IV STOPPED AND SL WILL NEED TO BE DC'D BEFORE DC.
[2018-06-06 12:22] VITALS: BP 101/47
--- NOTE | 2018-06-06 15:01 | EC ---
PATIENT:GINI ODEN DATE OF SERVICE: 06/03/18 SEX: F MEDICAL RECORD: [id number] DATE OF : 58 LOCATION:D.M2 D.213 AGE OF PATIENT: 58 ADMISSION DATE: 06/03/18 REFERRING PHYSICIAN: INTERPRETING PHYSICIAN: REBECCA GO MD ECHOCARDIOGRAM REPORT ECHO CHARGES 4 ECHO COMPLETE Date: 06/05/18 CLINICAL DIAGNOSIS: ECHOCARDIOGRAPHIC MEASUREMENTS (adult normal given) AC root (d.<3.7cm) 3.4 cm LV Septum d (<1.2 cm> 1.1 cm Valve Excursion 1.4 cm LV Septum (systole) 1.7 cm Left Atria (s.<4.0cm> 3.4 cm LVPW d(<1.2cm) 1.1 cm RV (d.<2.3cm) 2.6 cm LVPW (sytole) 1.4 cm LV diastole(<5.6CM) 4.9 cm MV E-F(>70mm/sec) cm LV systole 3.3 cm LVOT Diameter 1.8 cm MV exc.(>10mm) cm Est.ejection fraction (50-75%) % DOPPLER: LVIT cm/sec A 60.0 cm/sec E 107 cm/sec LA cm/sec RVSP 34.0 mmHg LVOT 95.0 cm/sec AOP1/2T m/s Asc. Ao 159 cm/sec RVOT 61.0 cm/sec RA cm/sec PA 59.0 cm/sec AV Gradient Peak 10.2 mmHg AV Mean 4.7 mmHg AV Area 1.6 cm MV Gradient Peak 6.0 mmHg MV Mean 2.3 mmHg MV Area cm COMMENTS: Dirt Bike Racer: Kala MAJOROE Cutter Grind Tool Technician: 3 Dr. Hemphill TAPE# PACS Pericardial Effusion N DATE OF SERVICE: 06/05/2018 Adequate 2-D echo, color flow and spectral Doppler, and M-Mode Borderline LVH. LV internal dimensions are normal. LV is mildly globally hypo with reduced EF, estimated EF 30% to 35%. Aortic valve sclerosis is without stenosis by Doppler interrogation. Left atrium is normal at 3.4 cm. Mitral valve shows no prolapse. Mild plus MR. Right-sided chamber is grossly normal. Moderate TR. ECHOCARDIOGRAM REPORT [id number] GINI ODEN TRANSINT:[id number] Voice Confirmation ID: [id number] DOCUMENT ID: [id number] REBECCA GO MD at 1501 CC: [id number] DICTATION DATE: 06/05/18 1041 INFORMATION SYSTEMS OPERATOR: 06/05/18 1338 ADM IN [facility] [address] [place] [address]
--- NOTE | 2018-06-06 15:21 | NUR ---
NO CHANGE IN ASSESSMENT. RESP EVEN AND UNLABORED. NO DISTRESS NOTED.
[2018-06-06 17:04] VITALS: BP 115/85
--- NOTE | 2018-06-07 16:46 | MORECARE ---
CASE MANAGEMENT DISCHARGE SUMMARY PATIENT: GNII ODEN UNIT: [id number] ADM DATE: 06/03/18 AGE: 58 : 58 SEX: F ROOM/BED: D.2138 AUTHOR: JASWINDER SANCHEZ PHYSICIAN: REFERRING PHYSICIAN: NATHANAEL HERNANDEZ MD DATE OF SERVICE: 06/07/18 Discharge Plan Patient Name: GINI ODEN Facility: [facility]:[place] : 1960 Planned Disposition: Home Anticipated Discharge Date: 06/06/18 Discharge Date: 06/06/2018 Expected LOS: 3 Initial Reviewer: [email or web address] Initial Review Date: 06/07/2018 Generated: 06/07/18 5:46 pm Patient Name: GINI ODEN Page [id number] at 1646 All edits/amendments must be made on the electronic document DICTATION DATE: 06/07/181644 PROFESSIONAL ATHLETE: CHRISTIANO 06/07/181644 RPT#: [id number] DC DATE:06/06/18 STATUS: DIS IN [facility] [address] [place] [address] END OF REPORT
== END 2018-06-06 20:29 | disposition home or self-care (01) | DRG 640 ==
LOC: D.ER 12:52 → D.M2 17:49 → D.EDHOLD 17:49 → D.M2 19:53
PROVIDERS: Emergency Medicine; Family Medicine; ADMIT Emergency Medicine
DX: E87.1 Hypo-osmolality and hyponatremia (principal); J96.20 Acute and chronic respiratory failure, unspecified whether with hypoxia or hypercapnia; J44.1 Chronic obstructive pulmonary disease with (acute) exacerbation; E83.42 Hypomagnesemia; I11.0 Hypertensive heart disease with heart failure; I50.9 Heart failure, unspecified; I48.91 Unspecified atrial fibrillation; Z95.0 Presence of cardiac pacemaker

== ENCOUNTER 2018-08-11 19:00 | Outpatient (CLI) | payer MEDICAID ==
[2018-06-05 13:55] VITALS: BMI 33.4
== END 2018-08-11 23:59 | disposition home or self-care (01) ==
LOC: D.MAMMO 19:00
PROVIDERS: ATTEND Family Medicine
DX: Z12.31 Encounter for screening mammogram for malignant neoplasm of breast (principal)

== ENCOUNTER → 2018-08-30 11:01 | Outpatient (CLI) | payer MEDICAID ==
[~2018-08-30 11:01] MED LIST changes: +FERROUS SULFAT325 MG PO; +OMEPRAZOLE20 M1 PO; +OMNICEF300 MG PO; +PREDNISONE20 MG PO
== END | disposition home or self-care (01) ==
LOC: D.US 11:01
DX: R55 Syncope and collapse (principal)

== ENCOUNTER → 2018-09-13 15:54 | Outpatient (CLI) | payer MEDICAID ==
[2018-06-05 13:55] VITALS: BMI 33.4
[~2018-09-13 15:54] MED LIST changes: -FERROUS SULFAT325 MG PO; -OMEPRAZOLE20 M1 PO; -OMNICEF300 MG PO; -PREDNISONE20 MG PO
== END | disposition home or self-care (01) ==
LOC: D.MAMMO 13:30
PROVIDERS: ATTEND Family Medicine
DX: R92.8 Other abnormal and inconclusive findings on diagnostic imaging of breast (principal)

== ENCOUNTER 2018-09-18 05:15 | Day surgery (SDC) | payer MEDICAID ==
[~2018-09-18] VITALS: Ht 162.6 cm; Wt 83.2 kg
[2018-09-18 05:41] LABS: HEMATOCRIT 35.7 % (36.0-48.0); HEMOGLOBIN 11.5 g/dL (12-16); MCH 26.1 pg (26.0-34.0); MCHC 32.2 g/dL (31.0-37.0); MCV 81.1 fL (80.0-100.0); MEAN PLATELET VOLUME 8.5 fL (7.4-10.4); RBC 4.4 10x6/uL (4.00-5.40); RDW 15.3 % (11.5-14.5); WBC 5.9 10x3/uL (4.8-10.8)
[2018-09-18 06:02] LABS: ANION GAP 9.7 mmol/L (8-16); CALCIUM 8.7 mg/dL (8.5-10.1); POTASSIUM - SERUM 3.7 mmol/L (3.5-5.1)
[2018-09-18 06:34] VITALS: Ht 162.6 cm; Wt 83.2 kg
--- NOTE | 2018-09-18 16:44 | OP ---
PATIENT NAME: GINI ODEN MEDICAL RECORD: [id number] :58 LOCATION:FRANK ADMISSION DATE: SURGEON: ASHISH ZAMUDIO DO DATE OF OPERATION: 09/18/2018 PROCEDURE: EGD with biopsies. INDICATIONS FOR PROCEDURE: Dysphagia, epigastric pain, occult blood in stools, diarrhea. SCOPE: Olympus video gastroscope. MEDICATIONS: Propofol 150 mg IV per anesthesia. ESTIMATED BLOOD LOSS: Minimal. COMPLICATIONS: None. FINDINGS: Informed consent was given. The patient was made comfortable with the above medication. After reaching an adequate level of sedation by slow IV push, the patient was placed on her left side. The endoscope was advanced under direct visualization through the mouth to the second portion of the duodenum. The entire esophagus appeared normal. There were no strictures, rings, or other abnormalities that cale explain the patient's dysphagia. Cold forceps biopsies were taken from the midesophagus to rule out the presence of eosinophils. At the GE junction, there was mild evidence of LA class A reflux-induced esophagitis. The endoscope was advanced beyond the GE junction into the stomach and retroflexed to view the cardia and fundus, which appeared normal. The proximal body of the stomach appeared normal. As you approached the distal body of the stomach as well as the antrum and prepyloric regions, there was streaky erythema and some granularity consistent with gastritis. Random cold forceps biopsies were taken to submit for histopathology and to rule out the presence of H. pylori. Just proximal to the pylorus, there was a reactive nodule with an ulcerated tip that was not bleeding. The endoscope was advanced beyond the pylorus into the duodenum, which appeared normal down to the second portion. The endoscope was then withdrawn from the patient. The patient tolerated the procedure well and there were no complications. IMPRESSION: 1. LA class A reflux-induced esophagitis. 2. Gastritis. 3. Reactive nodule with an ulcerated tip, which is not bleeding located just proximal to the pylorus. This could be a source of the positive occult stools. PLAN AND RECOMMENDATIONS: 1. Discharge home when recovery parameters are met. 2. Follow up biopsy specimen results. 3. GERD diet and reflux precautions. 4. We will prescribe a PPI at 40 mg equivalent times 60 days to help with the gastritis, esophagitis, and the reactive nodule which could be a source of a positive Hemoccult. 5. Regarding the dysphagia, the patient has had a speech therapy evaluation in the past and has been taught maneuvers to help her swallow safely and more effectively. She should continue these maneuvers as instructed. 6. Proceed with colonoscopy as scheduled. OPERATIVE REPORT [id number] GINI ODEN Jsoe TRANSINT:[id number] Voice Confirmation ID: [id number] DOCUMENT ID: [id number] ASHISH ZAMUDIO DO at 1644 CC: [id number] DICTATION DATE: 09/18/18 0755 GALLERY INTERN: 09/18/18 1226 [facility] 09/18/18 [id number] [place] [address]
== END 2018-09-18 08:55 | disposition home or self-care (01) ==
LOC: D.OPS 05:15
PROVIDERS: Anesthesiology; ATTEND Internal Medicine Gastroenterology
DX: K21.0 Gastro-esophageal reflux disease with esophagitis (principal); K29.70 Gastritis, unspecified, without bleeding; Z01.812 Encounter for preprocedural laboratory examination

== ENCOUNTER 2018-09-20 06:54 | Day surgery (SDC) | payer MEDICAID ==
[2018-09-20 08:03] LABS: HEMATOCRIT 34.9 % (36.0-48.0); HEMOGLOBIN 11.3 g/dL (12-16); MCH 25.9 pg (26.0-34.0); MCHC 32.4 g/dL (31.0-37.0); MCV 79.9 fL (80.0-100.0); MEAN PLATELET VOLUME 9.5 fL (7.4-10.4); RBC 4.37 10x6/uL (4.00-5.40); RDW 15.4 % (11.5-14.5)
[2018-09-20 09:14] VITALS: BP 119/80; BMI 30.9
--- NOTE | 2018-09-25 07:50 | OP ---
PATIENT NAME: GINI ODEN MEDICAL RECORD: [id number] :58 LOCATION:[facility] ADMISSION DATE: SURGEON: ASHISH ZAMUDIO DO DATE OF OPERATION: 09/20/2018 PROCEDURE: Colonoscopy with polypectomy. INDICATIONS FOR PROCEDURE: Occult blood in stools, diarrhea. SCOPE: BeCouply video pediatric colonoscope. MEDICATIONS: Propofol 350 mg IV per anesthesia. WITHDRAWAL TIME: 37 minutes. ESTIMATED BLOOD LOSS: Minimal. COMPLICATIONS: None. FINDINGS: Informed consent was given. The patient was made comfortable with the above medication. After reaching an adequate level of sedation by slow IV push, the patient was placed on her left side. A digital rectal examination was performed and was normal. The endoscope was then advanced under direct visualization through the rectum to the terminal ileum. The endoscope was slowly withdrawn. Mucosa was carefully examined. The prep quality was fair. There were multiple polyps visualized on today's examination. The first encountered polyp was in the sigmoid colon. It was a benign-appearing sessile polyp, which measured approximately 9 mm in diameter. It was removed using a hot snare in 1 piece and completely retrieved. In the ascending colon, there were two separate polyps. One was a long flat polyp, which measured approximately 2.5 cm in length x 8 mm in diameter. Endoscopic mucosal resection technique was attempted with a lift using isotonic saline and Eleview. The snare was unable to remove this as it kept sliding over the polyp even with a stiff snare. Hot forceps were used to remove the polyp in its entirety and cauterize the remaining polypoid-appearing tissue. Two endoclips were placed across the fold to prevent post-procedural complications. Also, in the ascending colon, there was a benign appearing sessile polyp, which measured approximately 13 mm in diameter. It was removed using a hot snare in 1 piece and completely retrieved. A single endoclip was used over the defect from that polyp removal. In the descending colon, there was a final polyp, which was benign appearing and sessile. It measured approximately 7 mm in diameter. It was removed using a hot snare in 1 piece and completely retrieved. Retroflexion was performed in the rectum with visualization of grade I internal hemorrhoids without active bleeding. The endoscope was withdrawn from the patient. The patient tolerated the procedure well and there were no complications. IMPRESSION: 1. Multiple polyps as described above, removed using a combination of a hot snare and hot forceps with 3 endoclips placed in total. 2. Grade I internal hemorrhoids without active bleeding. PLAN AND RECOMMENDATIONS: 1. Discharge home when recovery parameters are met. 2. Follow up biopsy specimen results. 3. High fiber diet. OPERATIVE REPORT [id number] GINI ODEN 4. Continue current medications. 5. Recall colonoscopy in 1-2 years based on the number and types of polyps removed today as well as the piecemeal removal of the long larger flat polyp. TRANSINT:[id number] Voice Confirmation ID: [id number] DOCUMENT ID: [id number] ASHISH ZAMUDIO DO at 0750 CC: [id number] DICTATION DATE: 09/20/18 1029 [facility]: 09/20/18 1103 [facility] 09/20/18 [facility] [address] [place] [address]
== END 2018-09-20 11:20 | disposition home or self-care (01) ==
LOC: D.OPS 06:54
PROVIDERS: Anesthesiology; ATTEND Internal Medicine Gastroenterology
DX: K64.0 First degree hemorrhoids (principal); D12.4 Benign neoplasm of descending colon; D12.3 Benign neoplasm of transverse colon; Z01.812 Encounter for preprocedural laboratory examination

== ENCOUNTER 2018-10-27 16:52 | Inpatient (IN) | payer MEDICAID ==
[~2018-10-27] VITALS: Ht 162.6 cm; Wt 82.6 kg
[2018-10-27] MEDS ORDERED: OMEPRAZOLE20 M1 PO (17:07)
[2018-10-27 17:27] LABS: BASOPHILS 0.5 % (0-2); EOSINOPHILS 2.2 % (0-7); HEMATOCRIT 34.4 % (36.0-48.0); HEMOGLOBIN 11.3 g/dL (12-16); LYMPHOCYTES 29.2 % (15-50); MCH 25.8 pg (26.0-34.0); MCHC 32.8 g/dL (31.0-37.0); MCV 78.5 fL (80.0-100.0); MEAN PLATELET VOLUME 8.7 fL (7.4-10.4); MONOCYTES 14.6 % (2-11); NEUTROPHILS 53.5 % (40-80); RBC 4.38 10x6/uL (4.00-5.40); RDW 15.9 % (11.5-14.5)
[2018-10-27 17:30] LABS: PLATELET COUNT 323 10x3/uL (130-400)
[2018-10-27 17:55] LABS: INR 2.35 (0.85-1.17)
[2018-10-27 17:58] LABS: ALBUMIN 2.9 g/dL (3.4-5.0); ALKALINE PHOSPHATASE 143 U/L (46-116); ALT (SGPT) 36 U/L (10-68); BILIRUBIN - TOTAL 0.48 mg/dL (0.2-1.3); CALC OSMOLALITY 254 mosm/kg (275-300); CALCIUM 8.5 mg/dL (8.5-10.1); CARBON DIOXIDE 26.5 mmol/L (21.0-32.0); CHLORIDE - SERUM 93 mmol/L (98-107); CREATININE - SERUM 0.9 mg/dL (0.6-1.3); GLUCOSE 92 mg/dL (74-106); POTASSIUM - SERUM 3.7 mmol/L (3.5-5.1); PROTEIN - SERUM 7.5 g/dL (6.4-8.2); SODIUM 128 mmol/L (136-145); UREA NITROGEN 6 mg/dL (7-18); eGFR NON AFRICAN AMERICAN 68 mL/min (90-120)
[2018-10-27 18:14] LABS: APTT 37.1 SECONDS (22.8-39.4)
[2018-10-27 18:24] LABS: CKMB 0.7 U/L (0.0-3.6); CREATINE KINASE 54 UL (21-215); PRO BNP 588 pg/mL (0-125)
[2018-10-27 18:30] LABS: TROPONIN-I 0.116 ng/mL (0.000-0.060)
--- NOTE | 2018-10-27 18:30 | NUR ---
NOTIFIED BY LAB OF ELEVATED TROPONIN 0.116. TREATING PROVIDER NOTIFIED.
--- NOTE | 2018-10-27 18:34 | NUR ---
WILL INITIATE ORDERED IV ABT ONCE ORDERED BLOOD CULTURES X2 ARE COLLECTED
[2018-10-27 18:44] VITALS: BP 105/69
--- NOTE | 2018-10-27 19:12 | NUR ---
HAND OFF REPORT GIVEN TO KELLI Donald RN USING SBAR COMMUNICATION.
[2018-10-27 19:48] LABS: CKMB 0.7 U/L (0.0-3.6)
[2018-10-27 20:00] VITALS: BP 93/63
[2018-10-27 20:00] LABS: TROPONIN-I 0.092 ng/mL (0.000-0.060)
--- NOTE | 2018-10-27 20:11 | NUR ---
CALLED YEHUDA R/T TROP 0.092. VO TO CANCEL CARDIAC ENZYMES
--- NOTE | 2018-10-27 21:10 | NUR ---
LEVAQUIN 750MG COMPLETE
[2018-10-27 22:44] VITALS: BP 93/73; BMI 31.3
[2018-10-28] VITALS: BP 101/59
[2018-10-28 04:00] VITALS: BP 98/40
[2018-10-28 07:13] VITALS: BMI 31.2
--- NOTE | 2018-10-28 07:40 | NUR ---
AWAKE AND ALERT. DENIES NEEDS.
[2018-10-28 07:51] VITALS: BP 100/60
[2018-10-28 08:26] VITALS: Ht 162.6 cm; Wt 82.6 kg
--- NOTE | 2018-10-28 09:00 | NUR ---
AWAKE AND ALERT. ORIENTED X3. NO C/O AT THIS TIME. LUNGS ARE CLEAR BILATERALLY, BUT DIMINISHED THROUGHOUT. OCCASSIONAL NON PRODUCTIVE COUGH NOTED. SKIN IS INTACT WITHOUT REDNESS. SL TO RIGHT HAND IS PATENT WTIHOUT REDNESS AT INSERTION SITE. DENIES NEEDS. ATE OVER HALF OF BREAKFAST. TOOK AM MEDS WITHOUT DIFFICUTLY.
[2018-10-28 10:55] LABS: % SATURATION 68 % (15-55); IRON 248 ug/dl (35-150); TOTAL IRON BIND CAPACITY 360 ug/dl (260-445); UNSAT IRON BIND CAPACITY 112 ug/dl (150-375)
--- NOTE | 2018-10-28 12:30 | NUR ---
LUNCH SERVED IN ROOM. ATE ABOUT HALF OF LUNCH. VERNAIES JAIMIE.
[2018-10-28 12:44] VITALS: BP 90/54
--- NOTE | 2018-10-28 15:00 | NUR ---
RESTING QUIETLY WITH EYES CLOSED.
[2018-10-28 16:53] VITALS: BP 96/64
--- NOTE | 2018-10-28 17:35 | NUR ---
ATE ALL OF SUPPER. DENIES NEEDS. NO CHANGES NOTED.
[2018-10-28 19:44] VITALS: BP 153/66
--- NOTE | 2018-10-28 20:06 | NUR ---
EVENING ROUNDS MADE. PT LAYING IN BED RESTING. STATES HER THROAT IS SORE AND SHE WOULD LIKE COUGH MEDICINE, INFORMED PT I WOULD BRING IT WITH NIGHT MEDS, PT AGREED WITH POC. DENIES FURTHER NEEDS AT THIS TIME. VITALS STABLE. FALL PRECAUTIONS IN PLACE. WILL CTM.
--- NOTE | 2018-10-28 21:02 | NUR ---
VITALS STABLE. PT TOOK MEDS WITHOUT DIFFICULTY. RESTING COMFORTABLY AT THIS TIME. PT GIVEN PHENERGAN WITH CODEINE FOR COUGH. DENIES FURTHE CONCERNS AT THIS TIME. FALL PRECAUTIONS IN PLACE. BED LOWERED AND LOCKED. CL IN REACH. WILL CTM.
--- NOTE | 2018-10-28 22:06 | NUR ---
I have reviewed this patient and I concur with the Shift Assessment completed by the Licensed Practical Nurse today this shift.
[2018-10-29 03:57] VITALS: BP 115/77
[2018-10-29 07:26] LABS: BASOPHILS 0.2 % (0-2); EOSINOPHILS 4.8 % (0-7); HEMATOCRIT 32.9 % (36.0-48.0); HEMOGLOBIN 10.5 g/dL (12-16); IMMATURE GRANULOCYTES 0.2 % (0-5); LYMPHOCYTES 27.1 % (15-50); MCH 25.5 pg (26.0-34.0); MCHC 31.9 g/dL (31.0-37.0); MEAN PLATELET VOLUME 8.8 fL (7.4-10.4); NEUTROPHILS 48.7 % (40-80); PLATELET COUNT 278 10x3/uL (130-400); RBC 4.11 10x6/uL (4.00-5.40); RDW 16.4 % (11.5-14.5)
[2018-10-29 07:56] VITALS: BP 112/71
--- NOTE | 2018-10-29 08:11 | NUR ---
AWAKE AND ALERT. ORIENTED X3. NO C/O AT THIS TIME. LUNGS HAVE CRACKLES IN LEFT SIDE, NON PRODUCTIVE COUGH NOTED. SKIN IS INTACT WITHOUT REDNESS. SL TO RIGHT HAND IS PATENT WTIHOUT REDNESS AT INSERTION SITE. ATE ALL OF BREAKFAST THIS AM. DENIES NEEDS.
[2018-10-29 08:39] LABS: ANION GAP 9.7 mmol/L (8-16); CALCIUM 8.6 mg/dL (8.5-10.1); CREATININE - SERUM 0.9 mg/dL (0.6-1.3); POTASSIUM - SERUM 3.7 mmol/L (3.5-5.1)
--- NOTE | 2018-10-29 09:00 | NUR ---
ATE ALL OF BREAKFAST. TOOK AM MEDS WITHOUT DIFFICULTY. DENIES NEEDS.
[2018-10-29 12:10] VITALS: BP 120/76
--- NOTE | 2018-10-29 12:30 | NUR ---
ATE ALMOST ALL OF LUNCH. NO C/O AT THIS TIME. DENIES NEEDS.
--- NOTE | 2018-10-29 15:00 | NUR ---
RESTING QUIETLY IN BED. DENIES NEEDS.
[2018-10-29 15:55] VITALS: BP 113/76
--- NOTE | 2018-10-29 17:11 | NUR ---
ATE ABOUT HALF OF SUPPER. FAMILY HAD BROUGHT HER FOOD EARLIER. DENIES NEEDS.
--- NOTE | 2018-10-29 17:58 | NUR ---
ATE ABOUT HALF OF SUPPER. NO CHANGES NOTED. DENIES NEEDS.
[2018-10-29 19:52] VITALS: BP 97/63
--- NOTE | 2018-10-29 20:20 | NUR ---
PT RESTING IN BED ALERT AND ORIENTED X4. PT VITALS STABLE. DENIES ANY PAIN OR NEEDS AT THIS TIME. BED LOW CALL LIGHT WITHIN REACH. WILL CONTINUE TO MONITOR.
[2018-10-30 01:07] VITALS: BP 111/77
--- NOTE | 2018-10-30 03:08 | NUR ---
PT RESTING IN BED AWAKE WITH OCCATIONAL COUGHING. PT DENIES ANY PAIN OR NEEDS AT THIS TIME. BED LOW CALL LIGHT WITHIN REACH WILL CONTINUE TO MONITOR.
--- NOTE | 2018-10-30 03:48 | NUR ---
I have reviewed this patient and I concur with the Shift Assessment completed by the Licensed Practical Nurse today this shift.
[2018-10-30 05:33] VITALS: BP 119/81
[2018-10-30 06:48] LABS: BASOPHILS 0.3 % (0-2); EOSINOPHILS 4.6 % (0-7); HEMATOCRIT 30.6 % (36.0-48.0); HEMOGLOBIN 9.9 g/dL (12-16); IMMATURE GRANULOCYTES 0.2 % (0-5); LYMPHOCYTES 27.5 % (15-50); MCH 25.9 pg (26.0-34.0); MCHC 32.4 g/dL (31.0-37.0); MCV 80.1 fL (80.0-100.0); MEAN PLATELET VOLUME 9.4 fL (7.4-10.4); MONOCYTES 13.2 % (2-11); NEUTROPHILS 54.2 % (40-80); PLATELET COUNT 317 10x3/uL (130-400); RBC 3.82 10x6/uL (4.00-5.40); RDW 16.4 % (11.5-14.5); WBC 5.9 10x3/uL (4.8-10.8)
[2018-10-30 06:57] LABS: CALC OSMOLALITY 255 mosm/kg (275-300); CALCIUM 8.5 mg/dL (8.5-10.1); CARBON DIOXIDE 25.7 mmol/L (21.0-32.0); CHLORIDE - SERUM 96 mmol/L (98-107); CREATININE - SERUM 0.8 mg/dL (0.6-1.3); GLUCOSE 95 mg/dL (74-106); POTASSIUM - SERUM 3.5 mmol/L (3.5-5.1); SODIUM 128 mmol/L (136-145); UREA NITROGEN 9 mg/dL (7-18); eGFR NON AFRICAN AMERICAN 78 mL/min (90-120)
--- NOTE | 2018-10-30 07:34 | NUR ---
MORNING ROUNDS MADE. PT LAYING IN BED RESTING. DENIES PAIN AT THIS TIME. PT STATES "I DIDNT SLEEP WELL LAST NIGHT" DENIES FURTHER NEEDS AT THIS TIME. FALL PRECAUTIONS IN PLACE. BED LOWERED AND LOCKED. CL IN REACH. WILL CTM.
[2018-10-30 07:42] VITALS: BP 101/63
--- NOTE | 2018-10-30 08:54 | NUR ---
VITALS STABLE. PT TOOK MEDS WITHOUT DIFFICULTY. DENIES PAIN AT THIS TIME. WET, NON PRODUCTIVE COUGH NOTED. NO FURTHER CONCERNS AT THIS TIME. BED LOWERED AND LOCKED. CL IN REACH. WILL CTM.
--- NOTE | 2018-10-30 09:27 | MORECARE ---
CASE MANAGEMENT DISCHARGE SUMMARY PATIENT: GINI ODEN UNIT: [id number] ADM DATE: 10/27/18 AGE: 58 : 58 SEX: F ROOM/BED: D.1213 AUTHOR: JASWINDER SANCHEZ PHYSICIAN: REFERRING PHYSICIAN: LORY ROBLES MD DATE OF SERVICE: 10/30/18 Discharge Plan Patient Name: GINI ODEN Facility: [facility]:[place] : 1960 Planned Disposition: Anticipated Discharge Date: Discharge Date: Expected LOS: Initial Reviewer: ELY Initial Review Date: 10/30/2018 Generated: 10/30/18 10:27 am DCPIA - Discharge Planning Initial Assessment Updated by [email or web address]: Cary Mirza on 10/30/18 9:23 am * Is the patient Alert and Oriented? Yes * How many steps to enter\exit or inside your home? * PCP THEO * [facility] * Preadmission Environment Home with Family * ADLs Independent * Equipment CPAP * Other Equipment 02 AND NEBULIZER * List name and contact numbers for known caregivers / representatives who currently or will assist patient after discharge: SPOUSE JEFF [phone] * Additional services required to return to the preadmission environment? No * Can the patient safely return to the preadmission environment? Yes * Has this patient been hospitalized within the prior 30 days at any hospital? No Patient Name: GINI ODEN Page [phone] at 0927 All edits/amendments must be made on the electronic document DICTATION DATE: 10/30/18926 MANAGEMENT RETAIL INTERN: CHRISTIANO 10/30/18926 RPT#: [id number] DC DATE: STATUS: ADM IN [facility] [address] [place] [address] END OF REPORT
--- NOTE | 2018-10-30 09:35 | MORECARE ---
CASE MANAGEMENT DISCHARGE SUMMARY PATIENT: GINI ODEN UNIT: [id number] ADM DATE: 10/27/18 AGE: 58 : 58 SEX: F ROOM/BED: D.1213 AUTHOR: DANIEL,DOC PHYSICIAN: REFERRING PHYSICIAN: LORY ROBLES MD DATE OF SERVICE: 10/30/18 Discharge Plan Patient Name: GINI ODEN Facility: [facility]:[place] : 1960 Planned Disposition: Anticipated Discharge Date: Discharge Date: Expected LOS: Initial Reviewer: ELY Initial Review Date: 10/30/2018 Generated: 10/30/18 10:35 am Comments DCP- Discharge Planning Updated by ELY: Cary Mirza on 10/30/18 8:[address] Patient Name: GINI ODEN Admission Status: ER Accout number: [id number] Admission Date: 10-27-2018 : 1960 Admission Diagnosis: Attending: LORY ROBLES Current LOS: 3 Anticipated DC Date: Planned Disposition: Primary Insurance: [place] [employer] [place] Discharge Planning Comments: CM met with patient to complete initial dc planning assessment. CM educated patient on the CM role and verbal consent given by patient to complete assessment. CM verified patient's address, phone number, and emergency contact phone numbers. Patient lives at home with FAMILY and reports SHe is independent in hER care. At discharge patient plans to return home and feels this is a safe discharge. CM discussed availability of home health, rehab services, and medical equipment. Patient denied known discharge needs at this time. PT HAS CPAP NEB AND HOME O2 THRU [facility] Patient reports spouse JEFF will transport her home at time of discharge. CM will continue to follow and will assist as needed with dc plans/needs. Loading Unit Tool Setter: Cary Mirza DCPIA - Discharge Planning Initial Assessment Updated by [email or web address]: Cary Mirza on 10/30/18 9:23 am * Is the patient Alert and Oriented? Yes * How many steps to enter\exit or inside your home? * PCP THEO * Pharmacy [facility] * Preadmission Environment Home with Family * ADLs Independent * Equipment CPAP * Other Equipment 02 AND NEBULIZER * List name and contact numbers for known caregivers / representatives who currently or will assist patient after discharge: SPOUSE JEFF [phone] * Additional services required to return to the preadmission environment? No * Can the patient safely return to the preadmission environment? Yes * Has this patient been hospitalized within the prior 30 days at any hospital? No Last DP export: 10/30/18 8:27 a Patient Name: GINI ODEN Page [phone] at 0935 All edits/amendments must be made on the electronic document DICTATION DATE: 10/30/18934 ORIENTAL MEDICINE PRACTITIONER: CHRISTIANO 10/30/18934 RPT#: [id number] DC DATE: STATUS: ADM IN [facility] [address] [place] [address] END OF REPORT
--- NOTE | 2018-10-30 09:55 | CN ---
PATIENT NAME:GINI ODEN MEDICAL RECORD: [id number] : 58 LOCATION:D. D.1213 ADMIT DATE: 10/27/18 ACCOUNT: [id number] CONSULTING PHYSICIAN: REBECCA GO MD REFERRING PHYSICIAN: LORY ROBLES MD DATE OF CONSULTATION: 10/28/2018 HISTORY OF PRESENT ILLNESS: A 58-year-old female with no known history of coronary artery disease. She has a history of nonischemic cardiomyopathy with normal coronaries in April 2018, admitted with a left lower lobe pneumonitis, symptomology present since earlier this week Tuesday or Tuesday with cough, subjective fever, noted to have elevated troponin. We are asked to see her concerning her cardiovascular status. PAST MEDICAL HISTORY: Includes; 1. History of atrial fibrillation. 2. Hypertension. 3. Nonischemic cardiomyopathy. 4. Obstructive pulmonary disease. MEDICATIONS: Include omeprazole 20 mg p.o. daily, Advair Diskus 250/50 one puff b.i.d., Singulair 10 daily, lisinopril 5 mg p.o. daily, carvedilol 3.125 daily, amiodarone 400 daily, Xarelto 20 daily, albuterol 2 puffs every 6 hours p.r.n. ALLERGIES: PENICILLIN. SOCIAL HISTORY: She is a nonsmoker and nondrinker. She is able to take care of all her ADLs on a routine basis. No set exercise program. REVIEW OF SYSTEMS: The patient reports easy bruising but reports no swollen glands. The patient reports no fever, no night sweats, no significant weight gain, no significant weight loss. No significant exercise tolerance. The patient reports no dry eyes, no irritation, no vision change. Patient reports no difficulty hearing and no ear pain. Patient reports no frequent nose bleeds or nose and sinus problems. Patient reports on arm pain on exertion. No shortness of breath while lying down. No history of heart murmur. Patient reports no cough, no wheezing or coughing up blood. Patient reports no abdominal pain, no vomiting. Normal appetite. No diarrhea and not vomiting blood. No nausea and no constipation. Patient reports no incontinence. No difficulty urinating. No hematuria. No increased frequency. Patient reports no muscle aches. No weakness, no arthralgias, no back pain. No swelling of the extremities. Patient reports no abnormal mole, no jaundice, no rashes. Reports no loss of consciousness. No weakness and no numbness. No seizures, dizziness, or headaches. The patient reports no depression, no sleep disturbance, feeling safe in a relationship and no alcohol abuse. Patient reports on fatigue. Reports no runny nose or sinus pressure. No itching, no hives, and no frequent sneezing. PHYSICAL EXAMINATION: GENERAL: Pleasant female in no acute distress, appears stated age. VITAL SIGNS: Blood pressure 100/60, pulse 74 and regular. HEENT: Normocephalic, atraumatic. NECK: No bruits are noted. HEART: Regular. Questionable S3 gallop. A II/ systolic ejection murmur. LUNGS: Decreased breath sounds particularly in the left base. CONSULT REPORT [id number] GINI ODEN ABDOMEN: Soft, nontender. EXTREMITIES: Pulses are well preserved, 2+, with no edema. NEUROLOGICAL: Grossly intact. DIAGNOSTIC DATA: ECG shows ventricular pacing. IMPRESSION: Give normal coronaries 6 months ago, I suspect this is more of a demand type troponin leak as opposed to ischemic symptomology. We watch closely for volume overload at this point. Thank you for the consultation. TRANSINT:[id number] Voice Confirmation ID: [id number] DOCUMENT ID: [id number] REBECCA GO MD at 0955 CC: [id number] DICTATION DATE: 10/28/18 1215 SENIOR CIVIL ENGINEER: 10/28/18 1651 ADM IN [place] [id number] [place] [address]
--- NOTE | 2018-10-30 09:55 | EC ---
PATIENT:GINI ODEN DATE OF SERVICE: 10/27/18 SEX: F MEDICAL RECORD: [id number] DATE OF : 58 LOCATION:D. D.121 AGE OF PATIENT: 58 ADMISSION DATE: 10/27/18 REFERRING PHYSICIAN: INTERPRETING PHYSICIAN: REBECCA GO MD ECHOCARDIOGRAM REPORT ECHO CHARGES 4 ECHO COMPLETE Date: 10/28/18 CLINICAL DIAGNOSIS: CHF/ELEVATED TROPONIN ECHOCARDIOGRAPHIC MEASUREMENTS (adult normal given) AC root (d.<3.7cm) 3.4 cm LV Septum d (<1.2 cm> 0.8 cm Valve Excursion 1.9 cm LV Septum (systole) 1.3 cm Left Atria (s.<4.0cm> 3.1 cm LVPW d(<1.2cm) 1.0 cm RV (d.<2.3cm) 3.4 cm LVPW (sytole) 1.3 cm LV diastole(<5.6CM) 5.2 cm MV E-F(>70mm/sec) cm LV systole 3.9 cm LVOT Diameter 1.9 cm MV exc.(>10mm) cm Est.ejection fraction (50-75%) % DOPPLER: LVIT cm/sec A 44.0 cm/sec E 71.0 cm/sec LA cm/sec RVSP 29.0 mmHg LVOT 86.0 cm/sec AOP1/2T m/s Asc. Ao 162 cm/sec RVOT 47.0 cm/sec RA cm/sec PA 60.0 cm/sec AV Gradient Peak 11.0 mmHg AV Mean 4.6 mmHg AV Area 1.4 cm MV Gradient Peak 2.3 mmHg MV Mean 1.1 mmHg MV Area cm COMMENTS: Asbestos Cement Sheet Supervisor: Kala MAJOROE Field Merchandiser: 3 Dr. Hemphill TAPE# PACS Pericardial Effusion N DATE OF SERVICE: 10/29/2018 Adequate 2-D echo, color-flow and spectral Doppler, and M-mode. No LVH. LV internal dimensions are normal. LV is globally hypokinetic with reduced EF. Estimated EF is 30% to 35%. Aortic valve is tricuspid. No evidence of stenosis by Doppler interrogation. Left atrium is normal at 3.1 cm. Mitral valve shows no prolapse. Mild MR. Right-sided chambers are grossly normal. Moderate TR. ECHOCARDIOGRAM REPORT [id number] GINI ODEN TRANSINT:[id number] Voice Confirmation ID: [id number] DOCUMENT ID: [id number] REBECCA GO MD at 0955 CC: [id number] DICTATION DATE: 10/29/18 1130 PAVING RAMMER: 10/29/18 1441 ADM IN [place] [id number] [place] [address]
[2018-10-30 11:57] VITALS: BP 101/70
--- NOTE | 2018-10-30 15:00 | NUR ---
I HAVE REVIEWED THIS PATIENT AND I CONCUR WITH THE SHIFT ASSESSMENT COMPLETED BY THE LICENSED PRACTICAL NURSE TODAY ON THIS SHIFT.
[2018-10-30 15:41] VITALS: BP 108/73
[2018-10-30 19:15] VITALS: BP 104/73
--- NOTE | 2018-10-30 20:15 | NUR ---
PT RESTING IN BED WITH EYES CLOSED. RR EVEN AND UNLABORED. NO S/S OF DISTRESS AT THIS TIME. BED LOW, CALL LIGHT WITHIN REACH, SIDE RAILS UP X2. WILL CONTINUE TO ASSESS.
--- NOTE | 2018-10-30 23:12 | NUR ---
PT AWAKE AND ALERT FROM COUGHING. PT DENIES ANY PAIN OR NEEDS. BED LOW CALL LIGHT WITHIN REACH. WILL CONTINUE TO MONITOR.
[2018-10-31 00:26] VITALS: BP 99/68
[2018-10-31 04:30] VITALS: BP 98/63
--- NOTE | 2018-10-31 04:48 | NUR ---
I have reviewed this patient and I concur with the Shift Assessment completed by the Licensed Practical Nurse today this shift.
[2018-10-31 06:51] LABS: BASOPHILS 0.9 % (0-2); EOSINOPHILS 4.9 % (0-7); HEMATOCRIT 35.3 % (36.0-48.0); HEMOGLOBIN 11.4 g/dL (12-16); IMMATURE GRANULOCYTES 0.2 % (0-5); MCHC 32.3 g/dL (31.0-37.0); MCV 80.4 fL (80.0-100.0); MEAN PLATELET VOLUME 10.2 fL (7.4-10.4); RBC 4.39 10x6/uL (4.00-5.40); RDW 16.8 % (11.5-14.5); WBC 5.3 10x3/uL (4.8-10.8)
[2018-10-31 07:00] LABS: PLATELET COUNT 232 10x3/uL (130-400)
[2018-10-31 07:28] LABS: CALC OSMOLALITY 262 mosm/kg (275-300); CALCIUM 8.7 mg/dL (8.5-10.1); CARBON DIOXIDE 26.4 mmol/L (21.0-32.0); CHLORIDE - SERUM 97 mmol/L (98-107); CREATININE - SERUM 0.7 mg/dL (0.6-1.3); GLUCOSE 89 mg/dL (74-106); SODIUM 133 mmol/L (136-145); UREA NITROGEN 8 mg/dL (7-18); eGFR NON AFRICAN AMERICAN > 90 mL/min (90-120)
[2018-10-31 07:29] LABS: POTASSIUM - SERUM 4.9 mmol/L (3.5-5.1)
[2018-10-31 07:32] VITALS: BP 102/54
--- NOTE | 2018-10-31 07:49 | NUR ---
MORNING ROUNDS MADE. PT LAYING IN BED RESTING COMFORTABLY. DENIES PAIN AT THIS TIME. NON PRODUCTIVE COUGH NOTED, PT DENIES NEED FOR PHENERGAN, STATES HER THROAT DOESNT HURT THIS AM. VITALS STABLE. FALL PRECAUTIONS IN PLACE. BED LOWERED AND LOCKED. CL IN REACH. WILL CTM.
--- NOTE | 2018-10-31 08:43 | NUR ---
VITALS STABLE. PT TOOK MORNING MEDS WITHOUT DIFFICULTY. DENIES PAIN AT THIS TIME. PT CONTINUE TO RESTING AFTER BREAKFAST. DENIES FURTHER NEEDS. FALL PRECAUTIONS IN PLACE. BED LOWERED AND LOCKED. CL IN REACH. WILL CTM.
--- NOTE | 2018-10-31 08:51 | NUR ---
PT ON 1L O2 VIA NC, O2 SAT 98-100%, PT STATES SHE WEARS 02 2L VIA NC AT HOME. TURNED PT O2 OFF. AFTER 5 MINUTES OF NO OXYGEN PT O2 SAT STILL REMAINED AT 98%. WILL CONTINUE TO LEAVE PT OXYGEN OFF AND CONTINUE TO MONITOR. NO FURTHER CONCERNS AT THIS TIME.
--- NOTE | 2018-10-31 09:30 | NUR ---
REASSESSED PT O2, O2 SAT AT THIS TIME ON ROOM AIR 95%. PT DENIES BEING SOB. PT RESTING COMFORTABLY. BREATHING EVEN AND UNLABORED. WILL CTM.
[2018-10-31 14:50] VITALS: BP 92/57
[2018-10-31 15:12] LABS: FOLATE (FOLIC ACID) - SERUM 7.9 ng/mL (>3.0)
--- NOTE | 2018-10-31 15:56 | NUR ---
I have reviewed this patient and I concur with the Shift Assessment completed by the Licensed Practical Nurse today this shift.
--- NOTE | 2018-10-31 18:58 | NUR ---
PT IN BED. DENIES NEEDS AT THIS TIME.
[2018-10-31 20:00] VITALS: BP 103/62
[2018-11-01 04:00] VITALS: BP 117/79
[2018-11-01 06:59] LABS: BASOPHILS 0.2 % (0-2); EOSINOPHILS 4.8 % (0-7); HEMATOCRIT 31.3 % (36.0-48.0); HEMOGLOBIN 10.1 g/dL (12-16); IMMATURE GRANULOCYTES 0.2 % (0-5); LYMPHOCYTES 26.9 % (15-50); MCHC 32.3 g/dL (31.0-37.0); MCV 80.7 fL (80.0-100.0); MONOCYTES 14.9 % (2-11); RBC 3.88 10x6/uL (4.00-5.40); RDW 17.4 % (11.5-14.5); WBC 5.1 10x3/uL (4.8-10.8)
[2018-11-01 07:04] LABS: PLATELET COUNT 290 10x3/uL (130-400)
[2018-11-01 07:18] LABS: CALC OSMOLALITY 256 mosm/kg (275-300); CALCIUM 8.4 mg/dL (8.5-10.1); CARBON DIOXIDE 25.6 mmol/L (21.0-32.0); CHLORIDE - SERUM 95 mmol/L (98-107); CREATININE - SERUM 0.8 mg/dL (0.6-1.3); GLUCOSE 90 mg/dL (74-106); POTASSIUM - SERUM 3.8 mmol/L (3.5-5.1); SODIUM 129 mmol/L (136-145); UREA NITROGEN 7 mg/dL (7-18); eGFR NON AFRICAN AMERICAN 78 mL/min (90-120)
[2018-11-01 07:38] VITALS: BP 117/75
--- NOTE | 2018-11-01 07:47 | NUR ---
MORNING ROUNDS MADE. PT LAYING IN BED RESTING. DENIES PAIN AT THIS TIME. BREATHING EVEN AND UNLABORED. DENIES FURTHER CONCERNS AT THIS TIME. BED LOWERED AND LOCKED. CL IN REACH. WILL CTM.
--- NOTE | 2018-11-01 09:10 | NUR ---
VITALS STABLE. PT TOOK MEDS WITHOUT DIFFICULTY. PT C/O COUGH AND SORE THROAT. PHENERGAN WITH CODEINE PROVIDED. PT DENIES PAIN AT THIS TIME. A/O X 4. FALL PRECAUTIONS IN PLACE. BED LOWERED AND LOCKED. CL IN REACH. WILL CTM.
--- NOTE | 2018-11-01 12:35 | NUR ---
NEW LINENS APPLIED TO PT BED
[2018-11-01 16:02] VITALS: BP 106/75
--- NOTE | 2018-11-01 18:00 | NUR ---
I have reviewed this patient and I concur with the Shift Assessment completed by the Licensed Practical Nurse today this shift.
--- NOTE | 2018-11-01 19:00 | NUR ---
PT IN BED. DENIES NEEDS AT THIS TIME.
[2018-11-01 19:49] VITALS: BP 109/77
[2018-11-02] VITALS: BP 109/70
[2018-11-02 04:00] VITALS: BP 120/75
[2018-11-02 06:14] LABS: BASOPHILS 0 % (0-2); EOSINOPHILS 0 % (0-7); HEMOGLOBIN 10.5 g/dL (12-16); IMMATURE GRANULOCYTES 0.1 % (0-5); LYMPHOCYTES 7.6 % (15-50); MCH 26.2 pg (26.0-34.0); MCHC 32.8 g/dL (31.0-37.0); MCV 79.8 fL (80.0-100.0); MEAN PLATELET VOLUME 9.3 fL (7.4-10.4); MONOCYTES 2.5 % (2-11); NEUTROPHILS 89.8 % (40-80); PLATELET COUNT 323 10x3/uL (130-400); RBC 4.01 10x6/uL (4.00-5.40); RDW 17.7 % (11.5-14.5)
[2018-11-02 06:25] LABS: WBC 9.5 10x3/uL (4.8-10.8)
[2018-11-02 06:46] LABS: CARBON DIOXIDE 25.7 mmol/L (21.0-32.0); CHLORIDE - SERUM 96 mmol/L (98-107); CREATININE - SERUM 0.8 mg/dL (0.6-1.3); POTASSIUM - SERUM 3.8 mmol/L (3.5-5.1); SODIUM 129 mmol/L (136-145); eGFR NON AFRICAN AMERICAN 78 mL/min (90-120)
[2018-11-02 06:48] LABS: CALC OSMOLALITY 260 mosm/kg (275-300); GLUCOSE 160 mg/dL (74-106); UREA NITROGEN 9 mg/dL (7-18)
[2018-11-02 07:26] VITALS: BP 105/67
--- NOTE | 2018-11-02 07:36 | NUR ---
ASSESSMENT COMPLETE. SL TO R WRIST. DENIES ANY NEEDS AT THIS TIME.
--- NOTE | 2018-11-02 13:38 | NUR ---
DENIES ANY NEEDS AT THIS TIME.
--- NOTE | 2018-11-02 17:12 | NUR ---
SITTING UP ON SIDE OF BED EATING DINNER. DENIES ANY NEEDS AT THIS TIME.
--- NOTE | 2018-11-02 19:24 | NUR ---
PT IN BED DENIES NEEDS AT THIS TIME.
[2018-11-02 20:44] VITALS: BP 106/70
[2018-11-03 01:17] VITALS: BP 110/69
[2018-11-03 06:24] VITALS: BP 115/78
[2018-11-03 07:03] LABS: CALC OSMOLALITY 259 mosm/kg (275-300); CALCIUM 8.6 mg/dL (8.5-10.1); CHLORIDE - SERUM 97 mmol/L (98-107); CREATININE - SERUM 0.8 mg/dL (0.6-1.3); GLUCOSE 149 mg/dL (74-106); POTASSIUM - SERUM 3.9 mmol/L (3.5-5.1); SODIUM 128 mmol/L (136-145); UREA NITROGEN 12 mg/dL (7-18); eGFR NON AFRICAN AMERICAN 78 mL/min (90-120)
[2018-11-03 07:25] LABS: BASOPHILS 0.1 % (0-2); EOSINOPHILS 0 % (0-7); HEMATOCRIT 30.2 % (36.0-48.0); HEMOGLOBIN 10.1 g/dL (12-16); IMMATURE GRANULOCYTES 0.3 % (0-5); LYMPHOCYTES 5.5 % (15-50); MCH 26.5 pg (26.0-34.0); MCHC 33.4 g/dL (31.0-37.0); MCV 79.3 fL (80.0-100.0); MEAN PLATELET VOLUME 9.1 fL (7.4-10.4); MONOCYTES 3.9 % (2-11); NEUTROPHILS 90.2 % (40-80); PLATELET COUNT 322 10x3/uL (130-400); RBC 3.81 10x6/uL (4.00-5.40); RDW 18.4 % (11.5-14.5)
[2018-11-03 07:26] LABS: WBC 12.8 10x3/uL (4.8-10.8)
[2018-11-03 08:31] VITALS: BP 100/48
--- NOTE | 2018-11-03 10:20 | NUR ---
THE PATIENT WAS SLEEPING, BUT EASILY AWOKE WHEN STAFF ENTERED HER ROOM. BED IS IN THE LOW POSITION WITH SIDERAILS X3 AN CALL LIGHT WITHIN REACH. THE PATIENT WAS EDUCATED ON AND DEMONSTRATES UNDERSTANDING OF THE CALL LIGHT. THE PATIENT APPEARS COMFORTABLE WITH NO QUESTIONS OR COCNERNS AT THIS TIME.
[2018-11-03] MEDS ORDERED: FERROUS SULFAT325 MG PO (11:16)
[2018-11-03 11:18] VITALS: BP 113/59
[2018-11-03] MEDS ORDERED: OMNICEF300 MG PO (11:19)
[2018-11-03] MEDS ORDERED: PREDNISONE20 MG PO (11:20)
--- NOTE | 2018-11-03 20:59 | MORECARE ---
CASE MANAGEMENT DISCHARGE SUMMARY PATIENT: GINI ODEN UNIT: [id number] ADM DATE: 10/27/18 AGE: 58 : 58 SEX: F ROOM/BED: D.1213 AUTHOR: DANIEL,DOC PHYSICIAN: REFERRING PHYSICIAN: LORY ROBLES MD DATE OF SERVICE: 11/03/18 Discharge Plan Patient Name: GINI ODEN Facility: [facility]:[place] : 1960 Planned Disposition: Anticipated Discharge Date: Discharge Date: 11/03/2018 Expected LOS: Initial Reviewer: [email or web address] Initial Review Date: 10/30/2018 Generated: 11/03/18 9:59 pm Comments DCP- Discharge Planning Updated by [email or web address]: Luz Jo on 11/03/18 7:[address] Patient Name: GINI ODEN Encounter No: [id number] : 1960 Primary Insurance: [employer] Anticipated DC Date: Planned Disposition: External Planned Provider: : DCP follow-up note: Patient and family in agreement with discharge plan. No changes to plan. Case management will follow and assist as needed. Luz Jo DCP- Discharge Planning Updated by [email or web address]: Cary Mirza on 10/30/18 8:[address] Patient Name: GINI ODEN Admission Status: ER Accout number: [id number] Admission Date: 10-27-2018 : 1960 Admission Diagnosis: Attending: LORY ROBLES Current LOS: 3 Anticipated DC Date: Planned Disposition: Primary Insurance: [employer] Discharge Planning Comments: CM met with patient to complete initial dc planning assessment. CM educated patient on the CM role and verbal consent given by patient to complete assessment. CM verified patient's address, phone number, and emergency contact phone numbers. Patient lives at home with FAMILY and reports SHe is independent in hER care. At discharge patient plans to return home and feels this is a safe discharge. CM discussed availability of home health, rehab services, and medical equipment. Patient denied known discharge needs at this time. PT HAS CPAP NEB AND HOME O2 THRU [facility] Patient reports spouse JEFF will transport her home at time of discharge. CM will continue to follow and will assist as needed with dc plans/needs. Residential Instructor: Cary Mirza DCPIA - Discharge Planning Initial Assessment Updated by [email or web address]: Cary Mirza on 10/30/18 9:23 am * Is the patient Alert and Oriented? Yes * How many steps to enter\exit or inside your home? * PCP THEO * [facility] * Preadmission Environment Home with Family * ADLs Independent * Equipment CPAP * Other Equipment 02 AND NEBULIZER * List name and contact numbers for known caregivers / representatives who currently or will assist patient after discharge: SPOUSE JEFF [phone] * Additional services required to return to the preadmission environment? No * Can the patient safely return to the preadmission environment? Yes * Has this patient been hospitalized within the prior 30 days at any hospital? No Last DP export: 10/30/18 8:35 a Patient Name: GINI ODEN Page [phone] at 2058 All edits/amendments must be made on the electronic document DICTATION DATE: 11/03/182058 BOWLING FLOOR DESK CLERK: CHRISTIANO 11/03/182058 RPT#: [id number] DC DATE:11/03/18 STATUS: DIS IN [facility] [address] [place] [address] END OF REPORT
== END 2018-11-03 14:57 | disposition home or self-care (01) | DRG 193 ==
LOC: D.ER 16:52 → D.M3 19:03
PROVIDERS: Emergency Medicine; Family Medicine; ADMIT Internal Medicine Nephrology; ATTEND Internal Medicine Nephrology
DX: J18.1 Lobar pneumonia, unspecified organism (principal); I50.33 Acute on chronic diastolic (congestive) heart failure; J44.0 Chronic obstructive pulmonary disease with (acute) lower respiratory infection; J44.1 Chronic obstructive pulmonary disease with (acute) exacerbation; I42.9 Cardiomyopathy, unspecified; N17.9 Acute kidney failure, unspecified; E87.1 Hypo-osmolality and hyponatremia; J96.11 Chronic respiratory failure with hypoxia; I24.8 Other forms of acute ischemic heart disease; I11.0 Hypertensive heart disease with heart failure; I48.91 Unspecified atrial fibrillation; Z95.0 Presence of cardiac pacemaker; I08.1 Rheumatic disorders of both mitral and tricuspid valves; D50.9 Iron deficiency anemia, unspecified; R79.89 Other specified abnormal findings of blood chemistry; K21.9 Gastro-esophageal reflux disease without esophagitis; G47.33 Obstructive sleep apnea (adult) (pediatric)

== ENCOUNTER → 2018-12-26 08:31 | Outpatient (CLI) | payer MEDICAID ==
[2018-10-28 08:26] VITALS: BMI 31.2
[~2018-12-26 08:31] MED LIST changes: +FERROUS SULFAT325 MG PO; +OMEPRAZOLE20 M1 PO; +OMNICEF300 MG PO; +PREDNISONE20 MG PO
== END | disposition home or self-care (01) ==
LOC: D.RT 08:31
PROVIDERS: ATTEND Internal Medicine Pulmonary Disease
DX: J44.9 Chronic obstructive pulmonary disease, unspecified (principal)

== ENCOUNTER 2019-04-24 10:44 | Outpatient (CLI) | payer MEDICAID ==
[~2019-04-24] VITALS: Ht 162.6 cm; Wt 81.8 kg
--- NOTE | ~2019-04-24 | OP ---
PATIENT NAME: GINI ODEN MEDICAL RECORD: [id number] :58 LOCATION:D.CAT ADMISSION DATE: SURGEON: KHALIDA BURNS MD DATE OF OPERATION: 04/24/2019 PREOPERATIVE DIAGNOSIS: End-of-life pacemaker generator. POSTOPERATIVE DIAGNOSIS: End-of-life pacemaker generator. PROCEDURE: Left subclavian vein AICD generator exchange. SURGEON: Khalida Burns MD REPORT OF PROCEDURE: The patient's left chest was prepped and draped in sterile fashion. A 25 mL of 1% lidocaine with epinephrine was infused into the surrounding tissues. A skin incision was made on the left superior lateral chest and the subcutaneous tissues were opened up using electrocautery. We opened these all the way down to the indwelling AICD generator. The generator was then eviscerated through the wound. There were 3 leads going into this, we were able to disassemble this and then replaced the leads back into the new pacemaker generator. At this point, everything appeared to be functioning appropriately. We put the new generator back into the subcutaneous pouch and irrigated out with antibiotic solution. The subcutaneous tissues were then reapproximated with interrupted 3-0 Vicryl and the skin was closed with running subcutaneous 5-0 Monocryl. COMPLICATIONS: None. CONDITION: Stable. ANESTHESIA: Local MAC. BLOOD LOSS: Minimal. TRANSINT:[id number] Voice Confirmation ID: [id number] DOCUMENT ID: [id number] KHALIDA BURNS MD CC: [id number] DICTATION DATE: 04/24/19 1332 STORE STOCK ASSOCIATE: 04/24/19 1619 DEP CLI 04/24/19 [id number] [place] [address]
--- NOTE | ~2019-04-24 | HEMODYNAMI ---
PATIENT:GINI ODEN MEDICAL RECORD: [id number] : 58 LOCATION:DMARIANN ADMISSION DATE: 04/24/19 Generatedon:04/24/201913:30 Patient name: GINI ODEN Patient #: [id number] SSN: [id number] : 1960 Date of study: 04/24/2019 Page: Of Hemodynamic Procedure Report Patient Data Patient Demographics Procedure consent was obtained First Name: GINI Gender: Female Last Name: CECILLE : 1960 [facility] Initial: R Age: 58 year(s) Patient #: [id number] Race: SSN: [id number] Additional ID: [id number] Contact details [address]: [address] [place] [address] State: [place] City: [place] Zip code: [address] Past Medical History Allergies Allergen Reaction Date Comments Reported Penicillins 02/19/2016 Penicillins Skin ->itching 02/19/2016 Other allergy 04/26/2018 PCN Other allergy 04/24/2019 PENICILLINS Admission Admission Data Admission Date: 04/24/2019 Admission Time: 10:44 Lab Results Lab Result Date: 04/24/2019 Lab Result Time: 0:00 Biochemistry Name Units Result Min Max BUN mg/dl 8 --(*---)-- 7 18 Creatinine mg/dl 0.9 --(-*--)-- 0.6 1.3 eGFR ml/min 67.70861 *-(----)-- 90 120 NONAFRICAN CBC Name Units Result Min Max Hematocrit % 40.1 -*(----)-- 42 54 Procedure Procedure Types Cath Procedure Diagnostic Procedure PPM/ICD ICD GEN EXCHANGE (3 LEAD) Sedation Charges Moderate Sedation up to 15 minutes Procedure Description Procedure Date Procedure Date: 04/24/2019 Procedure Start Time: 13:06 Procedure End Time: 13:26 Procedure Staff Name Function Steven Robledo MD Performing Physician Kendrick Molina MD Assisting physician Leslie Arriaga RT Monitor Shahnaz Duncan RT Monitor Noah Sampson RN Nurse Rylie Owens RT Scrub Procedure Data Cath Procedure Fluoroscopy Diagnostic fluoroscopy Total fluoroscopy Time: 0 time: 0 min min Diagnostic fluoroscopy Total fluoroscopy dose: 0 dose: 0 mGy mGy Estimated blood loss: 5 ml Procedure Complications No complications Procedure Medications Medication Administration Route Dosage 0.9% NaCl I.V. 100 ml/hr Vancomycin I.V.P.B 1 g Oxygen etCO2 Nasal cannula 3 l/min Lidocaine 1% added to field 20 Vancomycin 1 g Irrigation Versed I.V. 2 mg Fentanyl I.V. 100 mcg Versed I.V. 1 mg Fentanyl I.V. 50 mcg Hemodynamics Rest Heart Rate: 78 (bpm) Snapshots Pre Cath Intra NCS Post Cath Vital Signs Time Heart Resp SPO2 etCO2 NIBP (mmHg) Rhythm Pain Sedation Rate (ipm) (%) (mmHg) Status Level (bpm) 12:57:22 76 16 100 26.1 135/91(122) Paced 0 (11) 10(A) , No pain 13:01:30 71 15 100 36.5 129/85(109) Paced 0 (11) 10(A) , No pain 13:05:42 70 17 92 28.3 93/69(75) Paced 0 (11) 10(A) , No pain 13:09:40 153 10 95 39.6 108/71(94) Paced 0 (11) 10(A) , No pain 13:13:43 69 13 92 29.1 87/64(70) Paced 0 (11) 9(A) , No pain 13:17:39 62 16 94 32.1 98/66(84) Paced 0 (11) 9(A) , No pain 13:21:32 77 11 96 32.1 111/83(97) Paced 0 (11) 10(A) , No pain 13:25:30 73 17 98 29.1 123/88(100) Paced 0 (11) 10(A) , No pain Medications Time Medication Route Dose Verified Delivered Reason Notes Effectiv eness by by 13:02:14 0.9% NaCl I.V. 100 Noah Noah Per ml/hr Adrián Sampson physician RN RN 13:02:31 Vancomycin I.V.P.B 1 g Noah Noah Per Adrián sheth RN RN 13:02:56 Oxygen etCO2 3 Noah Noah for low 02 Nasal l/min Lorigan Lorigan sats cannula RN RN 13:03:21 Lidocaine added 20ml Noah Noah for local 1% to vial Lorigan Lorigan anesthetic field (x2) RN RN 13:03:55 Vancomycin Topical 1 g Noah Noah used for Irrigation ( added Lorigan Lorigan procedure to RN field insurance sales manager) 13:04:07 Versed I.V. 2 mg Noah Noah for Lorigan Lorigan sedation RN RN 13:04:16 Fentanyl I.V. 100 Noah Noah for mcg Lorigan Lorigan sedation RN RN 13:07:08 Versed I.V. 1 mg Noah Noah for Lorigan Lorigan sedation RN RN 13:09:50 Fentanyl I.V. 50 Noah Noah for mcg Lorigan Lorigan sedation RN alfalfa dehydrator operator Log Time Note 12:33:45 Informed consent obtained and on chart 12:33:57 Diagnostic Cath Status : Elective 12:40:07 Procedure Status PPM/ Gen Change/ Lead Revision/ Temp. 12:40:11 Noah Sampson RN sent for patient. Start room use. 12::18 Time tracking: Regular hours (M-F 7:00 - 5:00) 12:40:26 Plan of Care:Hemodynamics will remain stable., Cardiac rhythm will remain stable., Comfort level will be maintained., Respiratory function will remain adequate., Patient/ family verbilizes understanding of procedure., Procedure tolerated without complication., Recovers from procedure without complications.. 12:41:53 Lab Result : Hematocrit 40.1 % 12::53 Lab Result : eGFR NONAFRICAN 67.51812 ml/min 12::53 Lab Result : BUN 8 mg/dl 12::53 Lab Result : Creatinine 0.9 mg/dl 12:42:27 Medtronic customer sales representative EVETTE HARDEN present for procedure. 12:46:29 Patient received from Pre/Post Procedure Room to CCL 3 Alert and oriented. Tansferred to table in Supine position. 12:47:45 Warm blankets applied, and sarah hugger turned on for patient comfort. 12:47:45 Correct patient and procedure confirmed by team. 12:47:46 ECG and BP/O2 sat monitors applied to patient. 12:55:18 Vital chart was started 12:55:43 Baseline sample Acquired. 12:55:50 Rhythm: paced 12:55:52 Full Disclosure recording started 12:55:53 - 12:56:05 H&P Date Dictated: 04/24/2019 H&P Addendum completed by physician on day of procedure. (MUST COMPLETE FOR ALL OUTPATIENTS), New H&P dictated by physician.. 12:56:08 Pre-procedure instructions explained to patient. 12:56:09 Pre-op teaching completed and patient verbalized understanding. 12:56:13 Family in patients room. 12:56:16 Patient NPO since Midnight. 12:56:32 Patient allergic to Other allergyPENICILLINS 12:56:38 Is the patient allergic to Iodine/contrast media? No. 12:56:44 Is patient on blood thinner?Yes 12:56:55 ACC The patient was administered the following blood thiners within the last 5 DAYs: Xarelto 12:57:51 Patient diabetic? No. 12:57:55 ----Pre-sedation anethsthesia assessment.---- 12:58:00 Previous problem with sedation/anesthesia? No ? 12:58:05 Snore? Yes 12:58:07 Sleep apnea? Yes 12:58:09 Deviated septum? No 12:58:11 Opens mouth fully? Yes 12:58:13 Sticks out tongue? Yes 12:58:20 Airway obstruction? Yes COPD 12:58:25 Dentures? No ? 12:58:45 IV patent on arrival in left forearm with 0.9% NaCl at [facility]. 12:58:59 Lab results completed and on chart. 12:59:15 Left chest area was prepped with chlora-prep and draped in sterile fashion 12:59:18 Alarms reviewed by R. N. 12:59:19 Sharps counted by scrub and verified by R.N. 13:02:14 0.9% NaCl 100 ml/hr I.V. was administered by Noah Sampson RN; Per physician; Verbal order read back and verified. 13:02:25 Physician arrived 13:02:26 --------ALL STOP TIME OUT------ 13:02:27 Final Timeout: patient, procedure, and site verified with staff and physician. All members of the team are in agreement. 13:02:31 Vancomycin 1 g I.V.P.B was administered by Noah Sampson RN; Per physician; Verbal order read back and verified. 13:02:32 Left chest site verified by team. 13:02:41 Fire Safety Assessment: A--An alcohol-based skin anteseptic being used preoperatively., B--The operative or invasive procedure is being performed above the xiphoid process or in the oropharynx., C--Open oxygen or nitrous oxide is being used. 13:02:50 Physical assessment completed. ASA score P 2 - A patient with mild systemic disease as per Steven Robledo MD. 13:02:56 Oxygen 3 l/min etCO2 Nasal cannula was administered by Noah Sampson RN; for low 02 sats; Verbal order read back and verified. 13:03:09 Sedation plan: IV Moderate Sedation Medication:Versed, Fentanyl 13:03:20 Use device set KATY PPM 13:03:21 Lidocaine 1% 20ml vial (x2) added to field was administered by Noah Sampson RN; for local anesthetic; Verbal order read back and verified. 13:03:23 2-0 Ticron Multipack ([id number]) opened to sterile field. 13:03:24 3-0 Vicryl Single Pack [id number] opened to sterile field. 13:03:25 5-0 Monocryl PS2 [id number] opened to sterile field. 13:03:26 Cautery Tip Account Engineer opened to sterile field. 13:03:28 Cautery Pushbutton Pencil opened to sterile field. 13:03:55 Vancomycin Irrigation 1 g Topical ( added to field) was administered by Noah Sampson RN; used for procedure; Verbal order read back and verified. 13:04:07 Versed 2 mg I.V. was administered by Noah Sampson RN; for sedation; Verbal order read back and verified. 13:04:16 Fentanyl 100 mcg I.V. was administered by Noah Sampson RN; for sedation; Verbal order read back and verified. 13:05:25 [facility] DOUGHNUT ICER-D SureScan ([id number]) opened to sterile field. 13:05:32 Procedure started. 13:06:14 Pre sharps counted by scrub and verified by RN: Sutures: 7; Sponges: 5; Stick needles: 2; Skin needles: 0; Blade: 1; Cautery: 1 13:06:21 Grounding pad site Left thigh. 13:06:23 Grounding pad site free from injury. 13:06:29 Lidocaine 1% was administered to left subclavicular area by Kendrick Molina MD . 13:06:49 Incision made to left subclavicular area. 13:07:08 Versed 1 mg I.V. was administered by Noah Sampson RN; for sedation; Verbal order read back and verified. 13:09:22 Generator pocket made/opened. 13:09:50 Fentanyl 50 mcg I.V. was administered by Noah Sampson RN; for sedation; Verbal order read back and verified. 13:12:27 AICD was removed.. 13:12:38 AICD was inserted subcutaneously to left chest. 13:14:33 Device pocket was irrigated with Vancomycin. 13:14:56 Generator was sutured in place with 2-0 ticron. 13:15:18 Subcutaneous closure was completed with 3-0 vicryl plus. 13:18:00 Skin closure was completed with 5-0 monocryl. 13:22:24 Lt Chest incision was dressed with Mepilex dressing. 13:22:32 Procedure ended.(Physican Out) 13:22:52 Fluoroscopy time 00.00 minutes. 13:22:56 Flurop Dose total: 0 13:22:56 Fluoroscopy dose: 0 mGy 13:23:02 Dose Area Product 0 mGy/cm. 13:23:06 Sharps counted by scrub and verified by R.N. 13:23:26 Post sharps counted by scrub and verified by RN: Sutures: 7; Sponges: 5 ; Stick needles: 2; Skin needles: 0; Blade: 1; Cautery: 1 13:23:36 Insertion/operative site no bleeding no hematoma. 13:24:03 Post-op/insertion site Left Chest area dressed using a Mepilex dressing . 13:24:11 Post-procedure physical assessment completed. ASA score P 2 - A patient with mild systemic disease as per Steven Robledo MD. 13:24:17 Post procedure rhythm: paced 13:24:25 Estimated blood loss: 5 ml 13:24:28 Post procedure instruction explained to patient.Patient verbalizes understanding. 13:24:29 Patient needs reinforcement of post procedure teaching. 13:25:20 Procedure type changed to Cath procedure, Diagnostic procedure, PPM/ICD , ICD GEN EXCHANGE (3 LEAD), Sedation Charges, Moderate Sedation up to 15 minutes 13:25:56 Procedure and supply charges have been captured, reviewed, submitted an d are correct. 13:26:06 Procedure Complication : No complications 13:26:10 Vital chart was stopped 13:26:18 Operative report dictated upon procedure completion. 13:26:19 See physician's report for complete and final results. 13:26:22 Report given to Pre/Post Procedure Room. 13:26:31 Patient transfered to Pre/Post Procedure Room with Stretcher. 13:26:36 Procedure ended. 13:26:36 Full Disclosure recording stopped 13:26:41 End room use (Document Last) 13:28:58 End room use (Document Last) Device Usage Item Name Manufacture Quantity Catalog Hospital Part Current Minima l Lot# / Serial# Number Charge Number Stock Stock Code 2-0 Ticron Ethicon 6 [id number] [id number] 5 Multipack ([id number]) 3-0 Vicryl Ethicon 1 [id number] [id number] [id number] 263427 5 Single Pack [id number] 5-0 Monocryl Ethicon 1 [id number] 340962 114311 026074 5 PS2 Y495G Cautery Tip Microtek 1 [id number] 015304 163926 5 Account Engineer [employer] Cautery Microtek 1 [id number] 342086 41164 665139 5 Pushbutton Medical Inc[employer] Pencil Claria MRI Medtronic 1 [id number] [id number] [id number] 0 [id number] Quad DOUGHNUT ICER-D [id number] SureScan ([id number]) Signature Audit Loda Stage Time Signature Unsigned Intra-Procedure 04/24/2019 Leslie Arriaga 1:28:58 PM RT(R) Intra-Procedure 04/24/2019 Noah 1:29:43 PM Adrián ESCAMILLA Intra-Procedure 04/24/2019 Steven James 1:30:19 PM Victor Manuel HEDRICK [facility] [address] [place] [address]
[2019-04-24] MEDS ORDERED: LASIX20 MG PO (11:30)
[2019-04-24] MEDS ORDERED: BREO ELLIPTA 11 EACH INH (11:31)
[2019-04-24] MEDS ORDERED: SPIRIVA RESPIMAT4 G1 INH (11:32)
[2019-04-24] MEDS ORDERED: TESSALON PERLE100 MG PO (11:32)
[2019-04-24] MEDS ORDERED: FLUTICASONE PRO16 GM NASAL (11:33)
[2019-04-24 11:53] VITALS: Ht 162.6 cm; Wt 81.8 kg
[2019-04-24 12:12] LABS: HEMATOCRIT 40.1 % (36.0-48.0); HEMOGLOBIN 13.6 g/dL (12-16); MCH 31.6 pg (26.0-34.0); MCHC 33.9 g/dL (31.0-37.0); MEAN PLATELET VOLUME 9.1 fL (7.4-10.4); RBC 4.31 10x6/uL (4.00-5.40); RDW 14.3 % (11.5-14.5); WBC 4.4 10x3/uL (4.8-10.8)
[2019-04-24 12:22] LABS: ANION GAP 9.9 mmol/L (8-16); APTT 30.4 SECONDS (22.8-39.4); CALCIUM 8.7 mg/dL (8.5-10.1); CARBON DIOXIDE 31.1 mmol/L (21.0-32.0); CREATININE - SERUM 0.9 mg/dL (0.6-1.3)
[2019-04-24 12:23] LABS: INR 1.07 (0.85-1.17); PROTIME 13.4 SECONDS (11.6-15.0)
[2019-04-24] MEDS ORDERED: HYDROCODON-ACE1 EA10 PO (13:25)
--- NOTE | 2019-04-24 13:40 | NUR ---
PT RECEIVED VIA STRETCHER FROM ABSORPTION AND ADSORPTION ENGINEER POST PACEMAKER GEN EXCHANGE. PT AWAKE BUT DROWSY, SHE DENIES PAIN OR DISCOMFORT. L UPPER CHEST W MEPILEX DRESSING, NO BLEEDING NOTED. IV PATENT INFUSING NS AND VANCOMYCIN PER ORDERS. PT PLACED ON CARDIAC MONITORS, O2 ON VIA NC AT 2L. HR PACED AT 70, BP 121/88, RR 14, SAT 94. CALL LIGHT IN REACH, S/O AT BEDSIDE
--- NOTE | 2019-04-24 14:00 | NUR ---
PT RESTING COMFORTABLY, DENIES PAIN OR DISCOMFORT. DRESSING REMAINS CDI. VSS. CALL LIGHT IN REACH.
--- NOTE | 2019-04-24 14:03 | HP ---
PATIENT: GINI ODEN MEDICAL RECORD: [id number] ACCOUNT: [id number] LOCATION:AL : 58 ADMISSION DATE: 04/24/19 PCP: GABRIEL VENEGAS MD HISTORY AND PHYSICAL EXAMINATION HISTORY OF PRESENT ILLNESS: A 58-year-old female with a history of cardiomyopathy, hypertension, status post ICD placement device at end of life is being brought to the operations label clerk for a device generator exchange. PAST MEDICAL HISTORY: Includes: 1. History of hypertension. 2. Hyperlipidemia. 3. Cardiomyopathy. ALLERGIES: None known. PHYSICAL EXAMINATION: GENERAL: Pleasant female in no acute distress, appears stated age. HEENT: Normocephalic, atraumatic. NECK: No bruits noted. HEART: Regular. LUNGS: Arriaga clear. ABDOMEN: Soft, nontender. EXTREMITIES: Pulses 2+. IMPRESSION: End of life ICD for generator exchange. TRANSINT:[id number] Voice Confirmation ID: [id number] DOCUMENT ID: [id number] REBECCA GO MD at 1403 CC: [id number] DICTATION DATE: 04/24/19 1244 CIGARETTE STAMPER: 04/24/19 1304 [facility] [address] [id number]
--- NOTE | 2019-04-24 14:20 | NUR ---
DISCHARGE INSTRUCTIONS REVIEWED W PT, SHE VERBALIZED UNDERSTANDING. IV REMOVED W CATH INTACT, MONITORS AND O2 REMOVED. DRESSING TO RYAN CHEST REMAINS FREE OF BLEEDING. PT UP TO DRESS FOR DISCHARGE.
== END 2019-04-24 14:35 | disposition home or self-care (01) ==
LOC: D.CATH 10:44
PROVIDERS: ATTEND Internal Medicine Interventional Cardiology
DX: Z45.010 Encounter for checking and testing of cardiac pacemaker pulse generator [battery] (principal); I10 Essential (primary) hypertension; E78.5 Hyperlipidemia, unspecified; I42.9 Cardiomyopathy, unspecified

== ENCOUNTER → 2019-06-19 10:31 | Outpatient (CLI) | payer MEDICAID ==
[2019-04-24 11:53] VITALS: BMI 30.9
[~2019-06-19 10:31] MED LIST changes: +BREO ELLIPTA 11 EACH INH; +FLUTICASONE PRO16 GM NASAL; +HYDROCODON-ACE1 EA10 PO; +LASIX20 MG PO; +SPIRIVA RESPIMAT4 G1 INH; +TESSALON PERLE100 MG PO
== END | disposition home or self-care (01) ==
LOC: D.RT 10:31
PROVIDERS: ATTEND Internal Medicine Pulmonary Disease
DX: J44.9 Chronic obstructive pulmonary disease, unspecified (principal)

== ENCOUNTER 2019-08-27 14:14 | Inpatient (IN) | payer MEDICARE, BC ==
[~2019-08-27] VITALS: Ht 162.6 cm; Wt 108.7 kg
[2019-08-27] VITALS (24 sets, daily range): BP systolic 56–153; BP diastolic 31–99; BMI 28.2
--- NOTE | ~2019-08-27 | EEG ---
PATIENT:GINI ODEN MEDICAL RECORD: [id number] DATE OF : 58 LOCATION:D.230 D.ICU ADMISSION DATE: 08/27/19 REFERRING PHYSICIAN: INTERPRETING PHYSICIAN: HITESH GAMBINO MD DATE OF SERVICE: 08/30/2019 DATE OF EE08/30/2019. Room #2316. EEG ordered by Dr. Nino. CASE HISTORY: A 59-year-old female on vent, unresponsive with reported sepsis, DIC, pneumonia, and SALVATORE. PROCEDURE: EEG done is a routine bedside portable recording using the standard 10-20 international electrode system, 16 channels were used with 17 to this EKG. Photic stimulation was done as activation procedure. DESCRIPTION: EEG opens with the patient unresponsive on vent with the record displaying diffuse background slowing in the theta and delta range. There was no rhythmic slowing seen, no focal asymmetry of amplitude, no epileptiform change such as spike, polyspike, or spike in wave. IMPRESSION: Markedly abnormal EEG with diffuse background slowing consistent with encephalopathy, history would suggest etiologies to include sepsis and metabolic abnormality. No evidence of focal asymmetry that would suggest a structural abnormality and no evidence of seizure was observed. TRANSINT:[id number] Voice Confirmation ID: [id number] DOCUMENT ID: [id number] HITESH GAMBINO MD CC: [id number] DICTATION DATE: 08/30/191721 PUBLIC SERVICE ADMINISTRATOR: 08/30/192111 ADM [id number] [place] [id number]
[2019-08-27 15:02] LABS: BASOPHILS 0.1 % (0-2); EOSINOPHILS 0.6 % (0-7); HEMATOCRIT 47.6 % (36.0-48.0); HEMOGLOBIN 15.9 g/dL (12-16); IMMATURE GRANULOCYTES 2.1 % (0-5); LYMPHOCYTES 7.1 % (15-50); MCH 32.4 pg (26.0-34.0); MCHC 33.4 g/dL (31.0-37.0); MCV 97.1 fL (80.0-100.0); MEAN PLATELET VOLUME 13.4 fL (7.4-10.4); NEUTROPHILS 77.1 % (40-80); RDW 13.2 % (11.5-14.5); WBC 8.5 10x3/uL (4.8-10.8)
[2019-08-27 15:16] LABS: CALC OSMOLALITY 263 mosm/kg (275-300); CALCIUM 8.3 mg/dL (8.5-10.1); CARBON DIOXIDE 19.4 mmol/L (21.0-32.0); CHLORIDE - SERUM 90 mmol/L (98-107); CREATININE - SERUM 2.7 mg/dL (0.6-1.3); GLUCOSE 140 mg/dL (74-106); POTASSIUM - SERUM 3.6 mmol/L (3.5-5.1); SODIUM 124 mmol/L (136-145); UREA NITROGEN 47 mg/dL (7-18); eGFR NON AFRICAN AMERICAN 19 mL/min (90-120)
[2019-08-27 15:33] LABS: PLATELET COUNT 32 10x3/uL (130-400); PLATELET ESTIMATE DECREASED
[2019-08-27 15:53] LABS: ALBUMIN 2.2 g/dL (3.4-5.0); ALKALINE PHOSPHATASE 90 U/L (30-120); ALT (SGPT) 63 U/L (10-68); BILIRUBIN - TOTAL 1.79 mg/dL (0.2-1.3); CKMB 57.9 U/L (0.0-3.6); FERRITIN 372 ng/mL (3-244); PROTEIN - SERUM 6.8 g/dL (6.4-8.2)
[2019-08-27 16:04] LABS: CREATINE KINASE 5346 UL (21-215)
[2019-08-27 16:17] LABS: TROPONIN-I 0.222 ng/mL (0.000-0.060)
[2019-08-27 16:25] LABS: BILIRUBIN NEGATIVE (NEGATIVE); GLUCOSE NEGATIVE (NEGATIVE); KETONE NEGATIVE (NEGATIVE); NITRITE NEGATIVE (NEGATIVE); SPECIFIC GRAVITY 1.015 (1.005-1.020); UROBILINOGEN NORMAL (NORMAL)
[2019-08-27 16:27] LABS: BACTERIA MODERATE /hpf (NEGATIVE); EPITHELIAL CELLS 0-5 /hpf (0-5); RED CELLS - URINE 0-5 /hpf (0-5); WHITE CELLS - URINE 0-5 /hpf (NEGATIVE)
[2019-08-28] VITALS (90 sets, daily range): BP systolic 46–151; BP diastolic 21–104; BMI 28.1
[2019-08-28 00:15] LABS: HEMATOCRIT 45.4 % (36.0-48.0); HEMOGLOBIN 15.2 g/dL (12-16)
[2019-08-28 06:42] LABS: APTT 38.7 SECONDS (22.8-39.4); INR 1.82 (0.85-1.17); PROTIME 20.8 SECONDS (11.6-15.0)
[2019-08-28 06:50] LABS: D-DIMER-QUANTITATIVE 19.83 ug/mLFEU (0.20-0.54)
[2019-08-28 06:51] LABS: HEMATOCRIT 37.7 % (36.0-48.0); HEMOGLOBIN 12.5 g/dL (12-16); MCHC 33.2 g/dL (31.0-37.0); MCV 96.4 fL (80.0-100.0); RDW 13.6 % (11.5-14.5)
[2019-08-28 06:52] LABS: RBC 3.91 10x6/uL (4.00-5.40); WBC 14.4 10x3/uL (4.8-10.8)
[2019-08-28 06:53] LABS: PLATELET COUNT 22 10x3/uL (130-400)
[2019-08-28 07:06] LABS: ALKALINE PHOSPHATASE 62 U/L (30-120); BILIRUBIN - TOTAL 2.11 mg/dL (0.2-1.3); CARBON DIOXIDE 17.1 mmol/L (21.0-32.0); CHLORIDE - SERUM 101 mmol/L (98-107); CKMB 49.3 U/L (0.0-3.6); CREATININE - SERUM 3.3 mg/dL (0.6-1.3); GLUCOSE 108 mg/dL (74-106); MAGNESIUM - SERUM 1.6 mg/dL (1.8-2.4); PHOSPHOROUS 4.1 mg/dL (2.5-4.9); POTASSIUM - SERUM 3.8 mmol/L (3.5-5.1); PROTEIN - SERUM 5.1 g/dL (6.4-8.2); SODIUM 138 mmol/L (136-145); eGFR NON AFRICAN AMERICAN 15 mL/min (90-120)
[2019-08-28 07:17] LABS: LYMPHOCYTES 5 % (15-50); MONOCYTES 14 % (2-11); NEUTROPHILS 66 % (40-80)
[2019-08-28 07:18] LABS: PLATELET ESTIMATE DECREASED
[2019-08-28 07:26] LABS: ALT (SGPT) 85 U/L (10-68); CALC OSMOLALITY 293 mosm/kg (275-300); UREA NITROGEN 61 mg/dL (7-18)
[2019-08-28 07:28] LABS: CALCIUM 6.4 mg/dL (8.5-10.1); TROPONIN-I 0.726 ng/mL (0.000-0.060)
[2019-08-28 07:49] LABS: CREATINE KINASE 8722 UL (21-215)
[2019-08-28 09:58] LABS: FERRITIN 816 ng/mL (3-244)
[2019-08-28 09:59] LABS: LDH 750 U/L (81-234)
[2019-08-28 10:01] LABS: HEMATOCRIT 30.5 % (36.0-48.0); HEMOGLOBIN 10.1 g/dL (12-16)
[2019-08-28 16:14] LABS: HEMATOCRIT 31.6 % (36.0-48.0); HEMOGLOBIN 10.6 g/dL (12-16)
--- NOTE | 2019-08-28 19:51 | MORECARE ---
CASE MANAGEMENT DISCHARGE SUMMARY PATIENT: GINI ODEN UNIT: [id number] ADM DATE: 08/27/19 AGE: 59 : 58 SEX: F ROOM/BED: D.[facility]6 AUTHOR: JASWINDER SANCHEZ PHYSICIAN: REFERRING PHYSICIAN: LORY ROBLES MD DATE OF SERVICE: 08/28/19 Discharge Plan Patient Name: GINI ODEN Facility: [facility]:[place] : 1960 Planned Disposition: Home Anticipated Discharge Date: Discharge Date: Expected LOS: Initial Reviewer: [email or web address] Initial Review Date: 08/27/2019 Generated: 08/28/19 8:51 pm DCPIA - Discharge Planning Initial Assessment Updated by [email or web address]: Luz Jo on 08/28/19 7:48 pm * Is the patient Alert and Oriented? Yes * How many steps to enter\exit or inside your home? * PCP THEO * Pharmacy [facility] * Preadmission Environment Home with Family * ADLs Independent * Other Equipment CPAP, NEBULIZER, HOME/ PORTABLE 02 -[facility] * List name and contact numbers for known caregivers / representatives who currently or will assist patient after discharge: JEFF MARVIN [facility] - [phone] * Verbal permission to speak to the caregivers and representatives has been obtained from the patient. Yes * Community resources currently utilized None * Additional services required to return to the preadmission environment? No * Can the patient safely return to the preadmission environment? Yes * Has this patient been hospitalized within the prior 30 days at any hospital? No Patient Name: GINI ODEN Page 55590 at 1951 All edits/amendments must be made on the electronic document DICTATION DATE: 08/28/191950 LACE PINNER: CHRISTIANO 08/28/191950 RPT#: [id number] DC DATE: STATUS: ADM IN [facility] [address] [place] [address] END OF REPORT
--- NOTE | 2019-08-28 19:58 | MORECARE ---
CASE MANAGEMENT DISCHARGE SUMMARY PATIENT: GINI ODEN UNIT: [id number] ADM DATE: 08/27/19 AGE: 59 : 58 SEX: F ROOM/BED: D.2316 AUTHOR: DANIEL,DOC PHYSICIAN: REFERRING PHYSICIAN: LORY ROBLES MD DATE OF SERVICE: 08/28/19 Discharge Plan Patient Name: GINI ODEN Facility: [facility]:[place] : 1960 Planned Disposition: Home Anticipated Discharge Date: Discharge Date: Expected LOS: Initial Reviewer: [email or web address] Initial Review Date: 08/27/2019 Generated: 08/28/19 8:57 pm Comments DCP- Discharge Planning Updated by [email or web address]: Luz Jo on 08/28/19 6:[address] Patient Name: GINI ODEN Admission Status: ER Accout number: [id number] Admission Date: 08-27-2019 : 1960 Admission Diagnosis: Attending: LORY ROBLES Current LOS: 1 Anticipated DC Date: Planned Disposition: Home Primary Insurance: UNINSURED DISCOUNT PLAN Discharge Planning Comments: CM called and spoke with patient's life partner Jeff Reyes to complete initial dc planning assessment. CM educated patient on the CM role and verbal consent given by patient to complete assessment. Patient lives at home with her where she is independent with her care. At discharge patient plans to return home. CM discussed availability of home health, rehab services, and medical equipment. Patient has a nebulizer and home o2 ( [facility] ) Patient denied known discharge needs at this time. CM will continue to follow and will assist as needed with dc plans/needs. Brand Marketing Intern: Luz Jo DCPIA - Discharge Planning Initial Assessment Updated by [email or web address]: Luz Jo on 08/28/19 7:48 pm * Is the patient Alert and Oriented? Yes * How many steps to enter\exit or inside your home? * PCP THEO * Pharmacy [facility] * Preadmission Environment Home with Family * ADLs Independent * Other Equipment CPAP, NEBULIZER, HOME/ PORTABLE 02 -[facility] * List name and contact numbers for known caregivers / representatives who currently or will assist patient after discharge: JEFF REYES - LP - [phone] * Verbal permission to speak to the caregivers and representatives has been obtained from the patient. Yes * Community resources currently utilized None * Additional services required to return to the preadmission environment? No * Can the patient safely return to the preadmission environment? Yes * Has this patient been hospitalized within the prior 30 days at any hospital? No Last DP export: 08/28/19 6:51 pm Patient Name: GINI ODEN Page 94405 at 1959 All edits/amendments must be made on the electronic document DICTATION DATE: 08/28/191956 JAVA PROGRAMMER ANALYST: CHRISTIANO 08/28/191956 RPT#: [id number] DC DATE: STATUS: ADM IN [facility] [address] [place] [address] END OF REPORT
[2019-08-28 21:40] LABS: HEMATOCRIT 32.8 % (36.0-48.0); HEMOGLOBIN 10.8 g/dL (12-16)
[2019-08-29] VITALS (90 sets, daily range): BP systolic 70–139; BP diastolic 34–87
[2019-08-29 06:08] LABS: HAPTOGLOBIN 37 mg/dL (33-346)
[2019-08-29 06:25] LABS: ALBUMIN 1.6 g/dL (3.4-5.0); BILIRUBIN - TOTAL 2.29 mg/dL (0.2-1.3); CREATININE - SERUM 3.5 mg/dL (0.6-1.3); PHOSPHOROUS 4.2 mg/dL (2.5-4.9); PROTEIN - SERUM 4.2 g/dL (6.4-8.2); VANCOMYCIN - RANDOM 24.4 ug/mL (10.0-20.0)
[2019-08-29 06:37] LABS: HEMATOCRIT 33.2 % (36.0-48.0); HEMOGLOBIN 10.9 g/dL (12-16); MCH 31.6 pg (26.0-34.0); MCHC 32.8 g/dL (31.0-37.0); MCV 96.2 fL (80.0-100.0); RBC 3.45 10x6/uL (4.00-5.40); RDW 14.2 % (11.5-14.5)
[2019-08-29 06:50] LABS: PLATELET COUNT 2 10x3/uL (130-400)
[2019-08-29 06:56] LABS: ANION GAP 9.3 mmol/L (8-16); CARBON DIOXIDE 30.5 mmol/L (21.0-32.0); MAGNESIUM - SERUM 2.1 mg/dL (1.8-2.4)
[2019-08-29 06:57] LABS: CALCIUM 5.8 mg/dL (8.5-10.1); POTASSIUM - SERUM 2.8 mmol/L (3.5-5.1)
[2019-08-29 07:43] LABS: LYMPHOCYTES 5 % (15-50); MONOCYTES 12 % (2-11); NEUTROPHILS 65 % (40-80); PLATELET ESTIMATE DECREASED
[2019-08-29 07:55] LABS: INR 1.17 (0.85-1.17); PROTIME 14.9 SECONDS (11.6-15.0)
[2019-08-29 10:02] LABS: FERRITIN 1323 ng/mL (3-244); LDH 800 U/L (81-234)
[2019-08-29 10:09] LABS: BASOPHILS 0.5 % (0-2); EOSINOPHILS 0 % (0-7); HEMATOCRIT 32.4 % (36.0-48.0); HEMOGLOBIN 10.8 g/dL (12-16); IMMATURE GRANULOCYTES 1.6 % (0-5); LYMPHOCYTES 5.1 % (15-50); MCH 31.9 pg (26.0-34.0); MCHC 33.3 g/dL (31.0-37.0); MCV 95.6 fL (80.0-100.0); MONOCYTES 10.9 % (2-11); NEUTROPHILS 81.9 % (40-80); RBC 3.39 10x6/uL (4.00-5.40); RDW 14.1 % (11.5-14.5); WBC 11.4 10x3/uL (4.8-10.8)
[2019-08-29 10:14] LABS: PLATELET COUNT 2 10x3/uL (130-400)
[2019-08-29 12:00] LABS: CREATINE KINASE 5146 UL (21-215)
[2019-08-29 12:01] LABS: CKMB 16.4 U/L (0.0-3.6)
[2019-08-30] VITALS (87 sets, daily range): BP systolic 87–127; BP diastolic 5–71
[2019-08-30 03:55] LABS: BASOPHILS 0.7 % (0-2); EOSINOPHILS 0 % (0-7); HEMATOCRIT 32.3 % (36.0-48.0); HEMOGLOBIN 10.6 g/dL (12-16); IMMATURE GRANULOCYTES 1.9 % (0-5); LYMPHOCYTES 3.1 % (15-50); MCH 31.7 pg (26.0-34.0); MCHC 32.8 g/dL (31.0-37.0); MCV 96.7 fL (80.0-100.0); MEAN PLATELET VOLUME 12.7 fL (7.4-10.4); MONOCYTES 9.5 % (2-11); NEUTROPHILS 84.8 % (40-80); RBC 3.34 10x6/uL (4.00-5.40); WBC 12.1 10x3/uL (4.8-10.8)
[2019-08-30 03:59] LABS: ALBUMIN 1.5 g/dL (3.4-5.0); ANION GAP 10.1 mmol/L (8-16); BILIRUBIN - TOTAL 2.23 mg/dL (0.2-1.3); CARBON DIOXIDE 35.1 mmol/L (21.0-32.0); CREATININE - SERUM 3.7 mg/dL (0.6-1.3); POTASSIUM - SERUM 3.2 mmol/L (3.5-5.1); PROTEIN - SERUM 4.3 g/dL (6.4-8.2); VANCOMYCIN - RANDOM 16.9 ug/mL (10.0-20.0)
[2019-08-30 04:02] LABS: PLATELET COUNT 22 10x3/uL (130-400)
[2019-08-30 04:03] LABS: CALCIUM 5.9 mg/dL (8.5-10.1)
[2019-08-31] VITALS (99 sets, daily range): BP systolic 77–115; BP diastolic 40–59
[2019-08-31 04:36] LABS: ALBUMIN 1.5 g/dL (3.4-5.0); BILIRUBIN - TOTAL 2.55 mg/dL (0.2-1.3); CARBON DIOXIDE 31.8 mmol/L (21.0-32.0); CREATININE - SERUM 3.9 mg/dL (0.6-1.3); MAGNESIUM - SERUM 1.7 mg/dL (1.8-2.4); PROTEIN - SERUM 4.4 g/dL (6.4-8.2); VANCOMYCIN - RANDOM 23.4 ug/mL (10.0-20.0)
[2019-08-31 04:48] LABS: ANION GAP 12.3 mmol/L (8-16); PHOSPHOROUS 5.7 mg/dL (2.5-4.9); POTASSIUM - SERUM 4.1 mmol/L (3.5-5.1)
[2019-08-31 04:49] LABS: BASOPHILS 1.2 % (0-2); EOSINOPHILS 0.1 % (0-7); HEMATOCRIT 31.9 % (36.0-48.0); HEMOGLOBIN 10.3 g/dL (12-16); IMMATURE GRANULOCYTES 0.9 % (0-5); LYMPHOCYTES 11.5 % (15-50); MCH 32.3 pg (26.0-34.0); MCHC 32.3 g/dL (31.0-37.0); MONOCYTES 8.9 % (2-11); NEUTROPHILS 77.4 % (40-80); RBC 3.19 10x6/uL (4.00-5.40); RDW 14.5 % (11.5-14.5); WBC 16.2 10x3/uL (4.8-10.8)
[2019-08-31 04:50] LABS: CALCIUM 6.1 mg/dL (8.5-10.1); PLATELET COUNT 39 10x3/uL (130-400)
[2019-08-31 14:51] LABS: APTT 28.4 SECONDS (22.8-39.4); INR 1.05 (0.85-1.17); PROTIME 13.6 SECONDS (11.6-15.0)
[2019-08-31 17:20] LABS: FERRITIN 553 ng/mL (3-244); LDH 1158 U/L (81-234)
[2019-09-01] VITALS (96 sets, daily range): BP systolic 53–135; BP diastolic 27–82
[2019-09-01 03:37] LABS: BASOPHILS 0.2 % (0-2); EOSINOPHILS 0.1 % (0-7); HEMATOCRIT 30.1 % (36.0-48.0); HEMOGLOBIN 9.3 g/dL (12-16); IMMATURE GRANULOCYTES 0.9 % (0-5); LYMPHOCYTES 7.3 % (15-50); MCH 31.5 pg (26.0-34.0); MCHC 30.9 g/dL (31.0-37.0); MONOCYTES 9.3 % (2-11); NEUTROPHILS 82.2 % (40-80); RBC 2.95 10x6/uL (4.00-5.40); RDW 14.8 % (11.5-14.5)
[2019-09-01 03:39] LABS: PLATELET COUNT 43 10x3/uL (130-400)
[2019-09-01 03:48] LABS: ALBUMIN 1.4 g/dL (3.4-5.0); ANION GAP 14.7 mmol/L (8-16); BILIRUBIN - TOTAL 2.21 mg/dL (0.2-1.3); CARBON DIOXIDE 27.9 mmol/L (21.0-32.0); CREATININE - SERUM 4.6 mg/dL (0.6-1.3); PHOSPHOROUS 6.9 mg/dL (2.5-4.9); POTASSIUM - SERUM 4.6 mmol/L (3.5-5.1); PROTEIN - SERUM 4.4 g/dL (6.4-8.2); VANCOMYCIN - TROUGH 20.3 ug/mL (10.0-20.0)
[2019-09-01 03:54] LABS: MAGNESIUM - SERUM 2.6 mg/dL (1.8-2.4)
[2019-09-01 03:55] LABS: CALCIUM 6.5 mg/dL (8.5-10.1)
[2019-09-01 14:00] LABS: CREATINE KINASE 3339 UL (21-215)
[2019-09-01 14:01] LABS: CKMB 6.7 U/L (0.0-3.6)
[2019-09-02] VITALS (89 sets, daily range): BP systolic 94–143; BP diastolic 45–87
[2019-09-02 05:09] LABS: BASOPHILS 0.1 % (0-2); EOSINOPHILS 0.1 % (0-7); HEMATOCRIT 24.2 % (36.0-48.0); HEMOGLOBIN 7.8 g/dL (12-16); IMMATURE GRANULOCYTES 0.8 % (0-5); LYMPHOCYTES 7.5 % (15-50); MCH 32.1 pg (26.0-34.0); MCHC 32.2 g/dL (31.0-37.0); MEAN PLATELET VOLUME 14.4 fL (7.4-10.4); MONOCYTES 7.2 % (2-11); NEUTROPHILS 84.3 % (40-80); RBC 2.43 10x6/uL (4.00-5.40); RDW 14.1 % (11.5-14.5); WBC 12.4 10x3/uL (4.8-10.8)
[2019-09-02 05:14] LABS: MCV 99.6 fL (80.0-100.0); PLATELET COUNT 52 10x3/uL (130-400)
[2019-09-02 05:44] LABS: ALBUMIN 1.7 g/dL (3.4-5.0); ANION GAP 16.9 mmol/L (8-16); BILIRUBIN - TOTAL 2.93 mg/dL (0.2-1.3); CALCIUM 7.1 mg/dL (8.5-10.1); CARBON DIOXIDE 24.4 mmol/L (21.0-32.0); CREATININE - SERUM 3.7 mg/dL (0.6-1.3); MAGNESIUM - SERUM 2.5 mg/dL (1.8-2.4); PHOSPHOROUS 6.4 mg/dL (2.5-4.9); POTASSIUM - SERUM 4.3 mmol/L (3.5-5.1); PROTEIN - SERUM 4.5 g/dL (6.4-8.2); VANCOMYCIN - RANDOM 12.9 ug/mL (10.0-20.0)
[2019-09-02 06:05] LABS: BILIRUBIN NEGATIVE (NEGATIVE); GLUCOSE 100 mg/dL (NEGATIVE); KETONE NEGATIVE (NEGATIVE); NITRITE NEGATIVE (NEGATIVE); SPECIFIC GRAVITY 1.015 (1.005-1.020); UROBILINOGEN NORMAL (NORMAL)
[2019-09-02 06:06] LABS: AMORPHOUS SEDIMENT >1+ /lpf (NONE SEEN); BACTERIA FEW /hpf (NEGATIVE); EPITHELIAL CELLS 0-5 /hpf (0-5); GRANULAR CAST 0-5 /lpf (NONE SEEN)
[2019-09-03] VITALS (11 sets, daily range): BP systolic 89–124; BP diastolic 44–78; Ht 162.6 cm; Wt 108.7 kg
--- NOTE | 2019-09-04 09:00 | MORECARE ---
CASE MANAGEMENT DISCHARGE SUMMARY PATIENT: GINI ODEN UNIT: [id number] ADM DATE: 08/27/19 AGE: 59 : 58 SEX: F ROOM/BED: D.2302 AUTHOR: DANIEL,DOC PHYSICIAN: REFERRING PHYSICIAN: LORY ROBLES MD DATE OF SERVICE: 09/04/19 Discharge Plan Patient Name: GINI ODEN Facility: [facility]:[place] : 1960 Planned Disposition: Home Anticipated Discharge Date: Discharge Date: 09/03/2019 Expected LOS: Initial Reviewer: [email or web address] Initial Review Date: 08/27/2019 Generated: 09/04/19 9:59 am DCP- Discharge Planning Updated by [email or web address]: Luz Jo on 08/28/19 6:[address] Patient Name: GINI ODEN Admission Status: ER Accout number: [id number] Admission Date: 08-27-2019 : 1960 Admission Diagnosis: Attending: LROY ROBLES Current LOS: 1 Anticipated DC Date: Planned Disposition: Home Primary Insurance: UNINSURED DISCOUNT PLAN Discharge Planning Comments: CM called and spoke with patient's life partner Jeff Reyes to complete initial dc planning assessment. CM educated patient on the CM role and verbal consent given by patient to complete assessment. Patient lives at home with her where she is independent with her care. At discharge patient plans to return home. CM discussed availability of home health, rehab services, and medical equipment. Patient has a nebulizer and home o2 ( [facility] ) Patient denied known discharge needs at this time. CM will continue to follow and will assist as needed with dc plans/needs. Chain Mortiser Operator: Luz Jo DCPIA - Discharge Planning Initial Assessment Updated by [email or web address]: Luz Jo on 08/28/19 7:48 pm * Is the patient Alert and Oriented? Yes * How many steps to enter\exit or inside your home? * PCP THEO * Pharmacy [facility] * Preadmission Environment Home with Family * ADLs Independent * Other Equipment CPAP, NEBULIZER, HOME/ PORTABLE 02 -[facility] * List name and contact numbers for known caregivers / representatives who currently or will assist patient after discharge: JEFF REYES - - [phone] * Verbal permission to speak to the caregivers and representatives has been obtained from the patient. Yes * Community resources currently utilized None * Additional services required to return to the preadmission environment? No * Can the patient safely return to the preadmission environment? Yes * Has this patient been hospitalized within the prior 30 days at any hospital? No Last DP export: 08/28/19 6:58 pm Patient Name: GINI ODEN Page 90056 at 0900 All edits/amendments must be made on the electronic document DICTATION DATE: 09/04/19858 TRADE SALES ASSISTANT: CHRISTIANO 09/04/19858 RPT#: [id number] DC DATE:09/03/19 STATUS: DIS IN [facility] [address] [place] [address] END OF REPORT
== END 2019-09-03 11:59 | DRG 871 ==
LOC: D.ER 14:14 → D.ICU 17:34
PROVIDERS: Family Medicine; Internal Medicine Hematology & Oncology; Internal Medicine Pulmonary Disease; ADMIT Internal Medicine Nephrology; ATTEND Internal Medicine Nephrology
PROC: 05H533Z Insertion of Infusion Device into Right Subclavian Vein, Percutaneous Approach (ICD-10-PCS; principal; 2019-08-28)
DX: A41.01 Sepsis due to Methicillin susceptible Staphylococcus aureus (principal); R65.21 Severe sepsis with septic shock; J96.01 Acute respiratory failure with hypoxia; G93.41 Metabolic encephalopathy; I50.43 Acute on chronic combined systolic (congestive) and diastolic (congestive) heart failure; D65 Disseminated intravascular coagulation [defibrination syndrome]; K72.00 Acute and subacute hepatic failure without coma; G93.1 Anoxic brain damage, not elsewhere classified; N39.0 Urinary tract infection, site not specified; E87.1 Hypo-osmolality and hyponatremia; N17.9 Acute kidney failure, unspecified; T88.3XXA Malignant hyperthermia due to anesthesia, initial encounter; D68.9 Coagulation defect, unspecified; J44.9 Chronic obstructive pulmonary disease, unspecified; I11.0 Hypertensive heart disease with heart failure; K21.9 Gastro-esophageal reflux disease without esophagitis; G47.33 Obstructive sleep apnea (adult) (pediatric); Z95.810 Presence of automatic (implantable) cardiac defibrillator